=== PATIENT | female | born 1995 | race Caucasian/White ===

== ENCOUNTER 2021-10-18 13:47 | Emergency (ER) | payer OTHER, SELFPAY ==
[2021-10-18 14:07] VITALS: BP 123/56; PULSE 77; RESP 18; TEMP 36.4; O2SAT 98
--- NOTE | 2021-10-18 14:41 | ED.URI ---
HPI - URI/Sore Throat General Chief Complaint: Upper Respiratory Infection Stated Complaint: sorethroat,sinus pressure,congestion Time Seen by Provider: 10/18/21 14:41 Source: patient, RN notes reviewed and old records reviewed Mode of arrival: ambulatory Limitations: no limitations History of Present Illness HPI Narrative: 26 year old female who presents to [facility] care with complaints of sore throat, sinus congestion and sinus pressure with cough since Saturday. Patient reports that she has had some yellow tinged nasal drainage and has had clear productive cough with low grade fevers of 100F and sinus pressure. Patient states that she has history of asthma denies any acute shortness of breath or any noted wheezing. She reports that she has been taking DayQuil, NyQuil and also taking Mucinex for her symptoms. 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 MD elicited complaint: cough and sore throat Pertinent past history: asthma Related Data Home Medications Medication Instructions Recorded Confirmed aspirin 81 mg PO DAILY 10/18/21 10/18/21 diltiazem HCl 360 mg PO DAILY 10/18/21 10/18/21 itiagxshtali-ecw-uiln-FA-vit K 1 tablet PO DAILY 10/18/21 10/18/21 [Adults Multivitamin] sacubitril-valsartan [Entresto] 1 tablet PO BID 10/18/21 10/18/21 spironolactone 25 mg PO DAILY 10/18/21 10/18/21 Allergies Allergy/AdvReac Type Severity Reaction Status Date / Time iodine Allergy Unknown Verified 10/18/21 14:50 iohexol Allergy Unknown Verified 10/18/21 14:50 [From contrast - CT, X-RAY] latex Allergy Unknown Verified 10/18/21 14:50 Review of Systems Review of Systems: CONSTITUTIONAL: Low grade fever, chills, or sweats. EYES: Denies visual changes, redness, or discharge. ENT:Positive for rhinorrhea, congestion, sore throat, no otalgia. CARDIOVASCULAR: Denies chest pain, palpitations, or edema. RESPIRATORY: Positive for cough denies any dyspnea. GASTROINTESTINAL: Denies abdominal pain, nausea, vomiting, or diarrhea. GENITOURINARY: Denies dysuria or hematuria. SKIN: Denies rash or itching. MUSCULOSKELETAL: Denies back pain, joint pain, or myalgia. NEUROLOGIC: Denies headache, numbness, or weakness. PSYCHIATRIC: Denies anxiety or depression. All systems reviewed & are unremarkable except as noted in HPI and below PMFSH Past Medical History Medical History (Updated 10/19/21 @ 00:11 by Ida Stone NP) Asthma Surgical History Surgical History (Updated 10/19/21 @ 00:11 by Ida Stone NP) Heart valve replaced 2019 through cardiac catheterization procedure History of open heart surgery X3 Hx of cholecystectomy Social History Social History (Updated 10/19/21 @ 00:12 by Ida Stone NP) Smoking status: Never smoker Alcohol intake: current Alcohol use details: rare alcohol use Substance use: never Living arrangements: with family Gender identity (if verbalized by the patient): Female Comments At time of signature, agree with nursing past medical, surgical, social and family history. There is no relevant family history pertinent to the presenting complaint Exam Narrative: GENERAL: Well-appearing, well-nourished, and in no acute distress. HEAD: Normocephalic, atraumatic. EYES: PERRLA and EOMI. ENT: Nares red with yellowish tinged rhinorrhea no epistaxis. Mucous membranes moist.TM's normal with good light reflex, throat red without lesions or exudated some tonsil redness and swelling. NECK: Supple.no lymphadenopathy CHEST: Clear to auscultation. No respiratory distress.productive cough with no tachypnea or accessory muscle use SAO2 98% on room air HEART: Regular rate and rhythm. murmur heard. Normal peripheral pulses.no peripheral edema ABDOMEN: Soft, nontender, nondistended, normal
== END 2021-10-18 15:10 | disposition home or self-care (01) ==
PROVIDERS: Emergency Provider Registered Nurse
DX: J32.9 Chronic sinusitis, unspecified (principal); R05.9 Cough, unspecified; Z20.822 Contact with and (suspected) exposure to COVID-19; J45.909 Unspecified asthma, uncomplicated; Z95.2 Presence of prosthetic heart valve
CPT/HCPCS: 87081; 87426; 87804; 87880; 99213; C9803; G0463

== ENCOUNTER 2022-01-08 11:17 | Emergency (ER) | payer OTHER, SELFPAY ==
--- NOTE | 2022-01-08 11:22 | ED.URI ---
HPI - URI/Sore Throat General Chief Complaint: Upper Respiratory Infection Stated Complaint: cough,bilateral ear discomfort Time Seen by Provider: 01/08/22 11:21 Source: patient Mode of arrival: ambulatory Limitations: no limitations History of Present Illness HPI Narrative: Ms. Kim is a 26-year-old female patient presenting to the clinic today with complaints of sore throat, nasal congestion, cough, and bilateral ear pain x3 to 4 days She reports she has had chills, and hot sweats as well. She denies any known exposure to anybody with COVID, flu, or strep. She is a caregiver. Related Data Home Medications Medication Instructions Recorded Confirmed aspirin 81 mg tablet 81 mg PO DAILY 10/18/21 10/18/21 diltiazem HCl 360 mg 360 mg PO DAILY 10/18/21 10/18/21 capsule,extended release 24 hr multivit with minerals-iron 18 1 tablet PO DAILY 10/18/21 10/18/21 mg-folic ac 400 mcg-vit K 25 mcg tablet (Adults Multivitamin) sacubitril 24 mg-valsartan 26 mg 1 tablet PO BID 10/18/21 10/18/21 tablet (Entresto) spironolactone 25 mg tablet 25 mg PO DAILY 10/18/21 10/18/21 budesonide-formoterol HFA 160 2 inh inhalation DAILY 01/08/22 01/08/22 mcg-4.5 mcg/actuation aerosol inhaler (Symbicort) furosemide 20 mg tablet 1 tablet PO DAILY 01/08/22 01/08/22 Allergies Allergy/AdvReac Type Severity Reaction Status Date / Time iodine Allergy Unknown Verified 01/08/22 12:08 iohexol Allergy Unknown Verified 01/08/22 12:08 [From contrast - CT, X-RAY] latex Allergy Unknown Verified 01/08/22 12:08 Review of Systems Review of Systems: Pertinent positives per HPI. Patient denies any rash, headache, visual changes, dizziness, shortness of breath, chest pain, palpitations, nausea, vomiting, diarrhea, constipation, abdominal pain, or any urinary issues. PMFSH Past Medical History Medical History Asthma Surgical History Surgical History Heart valve replaced 2019 through cardiac catheterization procedure History of open heart surgery X3 Hx of cholecystectomy Social History Social History Smoking status: Never smoker Alcohol intake: current Alcohol use details: rare alcohol use Substance use: never Gender identity (if verbalized by the patient): Female Comments At the time of my signature, I reviewed and agree with the nursing past medical, surgical, social, and family history. There is no relevant family history pertinent to the patient complaint. Exam Narrative: General: Well-developed, well nourished, in no apparent distress Head: Normocephalic, atraumatic Eyes: Pupils equally round and reactive to light bilaterally, EOM intact, sclera and conjunctive clear, no discharge, lids normal Ears: TMs intact, dull, bulging, ear canals clear, no drainage, grossly hearing normal. Nose: Nares patent, clear nasal discharge, mild inflammation, no sinus tenderness. Mouth: Oropharynx without lesions or masses, good dentition, MMM. Oropharynx red without tonsillar exudate or enlargement, postnasal drip Neck: Supple, trachea midline, no enlargement of anterior or posterior cervical nodes, no thyroid masses or goiter palpable. Cardio: Regular rate and rhythm, s1 and s2 normal, systolic murmur graded 4 out of 6 appreciated best heard over the aortic valve. Resp: Clear to auscultation bilaterally anteriorly and posteriorly, no rhonchi, rales, wheezing or rubs Course Course Emergency Course: Portions of this record may have been created with voice recognition software. Level of Care: Express Care Visit Vital Signs Vital signs: Vital signs reviewed MDM - URI/Sore Throat MDM Narrative Medical decision making narrative: At the time of visit patient is resting comfortably on the exam table. COVID, flu, and strep testing com
[2022-01-08 11:30] VITALS: BP 136/70; PULSE 83; RESP 18; TEMP 36.8; O2SAT 100
== END 2022-01-08 12:12 | disposition home or self-care (01) ==
PROVIDERS: Emergency Provider Nurse Practitioner Family
DX: H69.93 Unspecified Eustachian tube disorder, bilateral (principal); J02.0 Streptococcal pharyngitis; R09.82 Postnasal drip; Z20.822 Contact with and (suspected) exposure to COVID-19; J45.909 Unspecified asthma, uncomplicated
CPT/HCPCS: 87081; 87147; 87426; 87804; 87880; 99213; C9803; G0463

== ENCOUNTER 2022-04-16 08:52 | Emergency (ER) | payer OTHER, SELFPAY ==
[2022-04-16 09:02] VITALS: BP 128/74; PULSE 76; RESP 16; TEMP 36.7; O2SAT 100
--- NOTE | 2022-04-16 09:37 | ED.URI ---
HPI - URI/Sore Throat General Chief Complaint: Upper Respiratory Infection Stated Complaint: Sore Throat, Bodyaches, Fever Time Seen by Provider: 04/16/22 09:38 Source: patient and RN notes reviewed Mode of arrival: ambulatory Limitations: no limitations History of Present Illness HPI Narrative: 26-year-old female presents to the [facility] with complaints of sore throat, body aches and fevers. Patient states symptoms started Saturday, 2 days ago. Has taken kaze-wly-schehjn products. Reports fevers of 100 201. MD elicited complaint: fever and sore throat Onset (ago): day(s) (2) Consistency: constant Treatments prior to arrival: acetaminophen and cold medicine Related Data Home Medications Medication Instructions Recorded Confirmed aspirin 81 mg tablet 81 mg PO DAILY 10/18/21 04/16/22 diltiazem HCl 360 mg 360 mg PO DAILY 10/18/21 04/16/22 capsule,extended release 24 hr multivit with minerals-iron 18 1 tablet PO DAILY 10/18/21 04/16/22 mg-folic ac 400 mcg-vit K 25 mcg tablet (Adults Multivitamin) sacubitril 24 mg-valsartan 26 mg 1 tablet PO BID 10/18/21 04/16/22 tablet (Entresto) spironolactone 25 mg tablet 25 mg PO DAILY 10/18/21 04/16/22 budesonide-formoterol HFA 160 2 inh inhalation DAILY 01/08/22 04/16/22 mcg-4.5 mcg/actuation aerosol inhaler (Symbicort) furosemide 20 mg tablet 1 tablet PO DAILY 01/08/22 04/16/22 Allergies Allergy/AdvReac Type Severity Reaction Status Date / Time iodine Allergy Unknown Verified 04/16/22 09:38 iohexol Allergy Unknown Verified 04/16/22 09:38 [From contrast - CT, X-RAY] latex Allergy Unknown Verified 04/16/22 09:38 Review of Systems Review of Systems: All systems reviewed & are unremarkable except as noted in HPI and below Constitutional: Constitutional: Reports as per HPI, Reports body ache(s), Reports chills, Reports fever(s) and Reports headache(s) Eyes: Eyes: Reports no additional eye complaints ENT: Reports as per HPI and Reports sore throat Cardiovascular: Cardiovascular: Reports no additional cardiovascular complaints Respiratory: Respiratory: Reports no additional respiratory complaints Gastrointestinal: Gastrointestinal: Reports no additional gastrointestinal complaints Musculoskeletal: Musculoskeletal: Reports no additional musculoskeletal complaints Integumentary/Breasts: Skin/Breast: Reports system reviewed and no additional complaints, except as docu Neurologic: Reports system reviewed and no additional complaints, except as documented Psychiatric: Psychiatric: Reports no additional psychiatric complaints Allergic/Immunologic: Allergic/Immunologic: Reports no additional allergic/immunologic complaints PMFSH Past Medical History Medical History Asthma Surgical History Surgical History Heart valve replaced 2019 through cardiac catheterization procedure History of open heart surgery X3 Hx of cholecystectomy Social History Social History Smoking status: Never smoker Alcohol intake: current Alcohol use details: rare alcohol use Substance use: never Gender identity (if verbalized by the patient): Female Comments At the time of my signature, I reviewed and agree with the nursing past medical, surgical, social, and family history. There is no relevant family history pertinent to the patient complaint. Exam Const: General: healthy appearing, no acute distress and alert Nutritional Appearance: well nourished and obese Orientation/consciousness: patient oriented x3 Limitations: no limitations HENMT: Head: normal to inspection Ears: external ears normal, TM's normal bilaterally and EAC's normal General nose exam: Normal external nose present Face and sinus: normal facial exam Throat: posterior oropharynx normal and uvula midline Eyes: General: appea
[2022-04-16 21:13] LABS: SARS-CoV-2 RNA PCR Negative
== END 2022-04-16 10:20 | disposition home or self-care (01) ==
PROVIDERS: Emergency Provider Nurse Practitioner
DX: J06.9 Acute upper respiratory infection, unspecified (principal); J45.909 Unspecified asthma, uncomplicated; Z20.822 Contact with and (suspected) exposure to COVID-19
CPT/HCPCS: 87081; 87426; 87804; 87880; 99213; C9803; G0463; U0003; U0005

== ENCOUNTER 2022-11-30 17:51 | Emergency (ER) | payer OTHER, SELFPAY ==
[2022-11-30 18:05] VITALS: BP 143/78; PULSE 76; RESP 18; TEMP 36.4; O2SAT 99
--- NOTE | 2022-11-30 18:25 | ED.URI ---
HPI - URI/Sore Throat General Chief Complaint: Upper Respiratory Infection Stated Complaint: Lt Ear Irritation,Cough,Congestion Time Seen by Provider: 11/30/22 18:19 Source: patient and RN notes reviewed Mode of arrival: ambulatory Limitations: no limitations History of Present Illness HPI Narrative: This patient presents today complaining of sore throat, postnasal drip, cough, left ear pain, headache x2 days. Currently rates her pain 7/10 and has been taking Mucinex and Tylenol without much relief. 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 History of congenital heart defect. Related Data Home Medications Medication Instructions Recorded Confirmed aspirin 81 mg tablet 81 mg PO DAILY 10/18/21 11/30/22 diltiazem HCl 360 mg 360 mg PO DAILY 10/18/21 11/30/22 capsule,extended release 24 hr multivit with minerals-iron 18 1 tablet PO DAILY 10/18/21 11/30/22 mg-folic ac 400 mcg-vit K 25 mcg tablet (Adults Multivitamin) sacubitril 24 mg-valsartan 26 mg 1 tablet PO BID 10/18/21 11/30/22 tablet (Entresto) spironolactone 25 mg tablet 25 mg PO DAILY 10/18/21 11/30/22 budesonide-formoterol HFA 160 2 inh inhalation DAILY 01/08/22 11/30/22 mcg-4.5 mcg/actuation aerosol inhaler (Symbicort) furosemide 20 mg tablet 1 tablet PO DAILY 01/08/22 11/30/22 hydralazine 50 mg tablet 50 mg PO TID 11/30/22 11/30/22 isosorbide dinitrate 20 mg tablet 20 mg PO TID 11/30/22 11/30/22 metoprolol succinate 50 mg 50 mg PO DAILY 11/30/22 11/30/22 tablet,extended release 24 hr Allergies Allergy/AdvReac Type Severity Reaction Status Date / Time iodine AdvReac Intermediate Wheezing Verified 11/30/22 18:10 iohexol AdvReac Intermediate Wheezing Verified 11/30/22 18:10 [From contrast - CT, X-RAY] latex AdvReac Mild Rash Verified 11/30/22 18:10 Review of Systems Review of Systems: CONSTITUTIONAL: Denies body aches, fever, chills, or sweats. EYES: Denies visual changes, redness, or discharge. ENT: Denies rhinorrhea. + sore throat, postnasal drip, left ear pain CARDIOVASCULAR: Denies chest pain, palpitations, or edema. RESPIRATORY: Denies dyspnea.+ cough GASTROINTESTINAL: Denies abdominal pain, nausea, vomiting, or diarrhea. GENITOURINARY: Denies dysuria or hematuria. SKIN: Denies rash, itching, or wounds. MUSCULOSKELETAL: Denies back pain, joint pain, or myalgia. NEUROLOGIC: Denies numbness, tingling, or weakness.+ headache PSYCH: Denies depression or anxiety. [facility] Past Medical History Medical History (Reviewed 11/30/22 @ 18:26 by Magdalena Houser, [facility] [place], ) Asthma Surgical History Surgical History (Reviewed 11/30/22 @ 18:26 by Magdalena Houser, [facility] [place], ) Heart valve replaced 2019 through cardiac catheterization procedure History of open heart surgery X3 Hx of cholecystectomy Social History Social History (Reviewed 11/30/22 @ 18:26 by Magdalena Houser, [facility] [place], ) Smoking status: Never smoker Alcohol intake: current Alcohol use details: rare alcohol use Substance use: never Living arrangements: with family Gender identity (if verbalized by the patient): Female Comments At time of signature, I have reviewed and agree with nursing past medical, surgical, social and family history unless otherwise noted. Please see nursing chart for further information. There is no relevant family history pertinent to the presenting complaint Exam Narrative: GENERAL: Well-appearing, well-nourished, and in no acute distress. HEAD: Normocephalic, atraumatic. EYES: EOMI. No redness or drainage. Conjunctivae normal. ENT: Mucous membranes pink and moist. Nares congested. No rhinorrhea. Right TM normal. Left TM with mild serous effusion without evidence of bacterial infection. Throat mildly erythematous posteriorly without edema or exudate. Uvula midline. NECK: Normal AROM. Supple. No lymphadenopathy. CHEST: No respiratory distress. Clear to auscultation. HEART: Regu
== END 2022-11-30 18:30 | disposition home or self-care (01) ==
PROVIDERS: Emergency Provider Nurse Practitioner
DX: J06.9 Acute upper respiratory infection, unspecified (principal); J45.909 Unspecified asthma, uncomplicated; Z79.82 Long term (current) use of aspirin; Z95.2 Presence of prosthetic heart valve
CPT/HCPCS: 87081; 87880; 99213; G0463

== ENCOUNTER 2023-03-17 10:07 | Emergency (ER) | payer OTHER, SELFPAY ==
[2023-03-17 10:19] VITALS: BP 125/73; PULSE 83; RESP 18; TEMP 36.6; O2SAT 98
--- NOTE | 2023-03-17 10:25 | ED.GENADULT ---
HPI - General Adult General Chief complaint: Unspecified Stated complaint: burning sensation on head Time Seen by Provider: 03/17/23 10:25 Source: patient Mode of arrival: ambulatory Limitations: no limitations History of Present Illness HPI narrative: 18-year-old female patient presents to the [facility] with complaints itchy scalp and burning to the scalp. Patient states her head started itching really bad on Saturday. Patient states yesterday it was itching again and felt like her scalp with burning. Denies any fevers, body aches or chills. Denies chest pain, shortness of breath. Denies any trouble swallowing or sore throat. Denies any ear pain. Patient states she has had shingles in her head before and felt similar but states that the pain at this time is all over and not specifically on 1 side. Related Data Home Medications Medication Instructions Recorded Confirmed aspirin 81 mg tablet 81 mg PO DAILY 10/18/21 11/30/22 diltiazem HCl 360 mg 360 mg PO DAILY 10/18/21 11/30/22 capsule,extended release 24 hr multivit with minerals-iron 18 1 tablet PO DAILY 10/18/21 11/30/22 mg-folic ac 400 mcg-vit K 25 mcg tablet (Adults Multivitamin) sacubitril 24 mg-valsartan 26 mg 1 tablet PO BID 10/18/21 11/30/22 tablet (Entresto) spironolactone 25 mg tablet 25 mg PO DAILY 10/18/21 11/30/22 budesonide-formoterol HFA 160 2 inh inhalation DAILY 01/08/22 11/30/22 mcg-4.5 mcg/actuation aerosol inhaler (Symbicort) furosemide 20 mg tablet 1 tablet PO DAILY 01/08/22 11/30/22 hydralazine 50 mg tablet 50 mg PO TID 11/30/22 11/30/22 isosorbide dinitrate 20 mg tablet 20 mg PO TID 11/30/22 11/30/22 metoprolol succinate 50 mg 50 mg PO DAILY 11/30/22 11/30/22 tablet,extended release 24 hr Allergies Allergy/AdvReac Type Severity Reaction Status Date / Time iodine AdvReac Intermediate Wheezing Verified 03/17/23 10:25 iohexol AdvReac Intermediate Wheezing Verified 03/17/23 10:25 [From contrast - CT, X-RAY] latex AdvReac Mild Rash Verified 03/17/23 10:25 meperidine [From Demerol] AdvReac Unknown Verified 03/17/23 10:25 Review of Systems Review of Systems: CONSTITUTIONAL: Denies fever, chills, or sweats. EYES: Denies visual changes, redness, or discharge. ENT: Denies rhinorrhea, congestion, sore throat, or otalgia. CARDIOVASCULAR: Denies chest pain, palpitations, or edema. RESPIRATORY: Denies cough or dyspnea. GASTROINTESTINAL: Denies abdominal pain, nausea, vomiting, or diarrhea. GENITOURINARY: Denies dysuria or hematuria. SKIN: Denies rash or Positive burning and itching. MUSCULOSKELETAL: Denies back pain, joint pain, or myalgia. NEUROLOGIC: Denies headache, numbness, or weakness. PSYCHIATRIC: Denies anxiety or depression. [facility] Past Medical History Medical History Asthma Surgical History Surgical History Heart valve replaced 2019 through cardiac catheterization procedure History of open heart surgery X3 Hx of cholecystectomy Social History Social History Smoking status: Never smoker Alcohol intake: current Alcohol use details: rare alcohol use Substance use: never Living arrangements: with family Gender identity (if verbalized by the patient): Female Comments At the time of my signature I agree with nursing past medical history, surgical, social, and family history. There is no relevant family history pertinent to the presenting complaint. Exam Narrative: GENERAL: Well-appearing, well-nourished, and in no acute distress. HEAD: Normocephalic, atraumatic. upon examination it does appear that patient has some dry flakiness noted to the top frontal portion of the scalp however when closer examination to the back of the hair does appear that she has a lice infestation. small flake like areas on the shaft of the hair and wh
== END 2023-03-17 10:45 | disposition home or self-care (01) ==
PROVIDERS: Emergency Provider Nurse Practitioner Family
DX: B85.2 Pediculosis, unspecified (principal); J45.909 Unspecified asthma, uncomplicated; Z79.82 Long term (current) use of aspirin
CPT/HCPCS: 99213; G0463

== ENCOUNTER 2023-06-28 15:13 | Emergency (ER) | payer OTHER, SELFPAY ==
[2023-06-28 15:38] VITALS: BP 135/62; PULSE 69; RESP 18; TEMP 36.7; O2SAT 96
--- NOTE | 2023-06-28 15:50 | ED.URI ---
HPI - URI/Sore Throat General Chief Complaint: Upper Respiratory Infection Stated Complaint: Cough,Congestion Time Seen by Provider: 06/28/23 15:49 Source: patient, RN notes reviewed and old records reviewed Mode of arrival: ambulatory Limitations: no limitations History of Present Illness HPI Narrative: 27-year-old female presents to the [facility] with complaints of cough, nasal congestion, postnasal drainage, sore throat that started last night less than 24 hours ago. Has taken a dose of Mucinex without relief. Denies fevers, chest pain, abdominal pain. Onset (ago): day(s) (1) Treatments prior to arrival: cold medicine (Mucinex) Related Data Home Medications Medication Instructions Recorded Confirmed aspirin 81 mg tablet 81 mg PO DAILY 10/18/21 06/28/23 diltiazem HCl 360 mg 360 mg PO DAILY 10/18/21 06/28/23 capsule,extended release 24 hr multivit with minerals-iron 18 1 tablet PO DAILY 10/18/21 06/28/23 mg-folic ac 400 mcg-vit K 25 mcg tablet (Adults Multivitamin) sacubitril 24 mg-valsartan 26 mg 1 tablet PO BID 10/18/21 06/28/23 tablet (Entresto) spironolactone 25 mg tablet 25 mg PO DAILY 10/18/21 06/28/23 budesonide-formoterol HFA 160 2 inh inhalation DAILY 01/08/22 06/28/23 mcg-4.5 mcg/actuation aerosol inhaler (Symbicort) furosemide 20 mg tablet 1 tablet PO DAILY 01/08/22 06/28/23 hydralazine 50 mg tablet 50 mg PO TID 11/30/22 06/28/23 isosorbide dinitrate 20 mg tablet 20 mg PO TID 11/30/22 06/28/23 metoprolol succinate 50 mg 50 mg PO DAILY 11/30/22 06/28/23 tablet,extended release 24 hr Allergies Allergy/AdvReac Type Severity Reaction Status Date / Time iodine AdvReac Intermediate Wheezing Verified 06/28/23 15:50 iohexol AdvReac Intermediate Wheezing Verified 06/28/23 15:50 [From contrast - CT, X-RAY] latex AdvReac Mild Rash Verified 06/28/23 15:50 meperidine [From Demerol] AdvReac Mild Rash Verified 06/28/23 15:50 Review of Systems Review of Systems: All systems reviewed & are unremarkable except as noted in HPI and below Constitutional: Constitutional: Reports no additional constitutional complaints Eyes: Eyes: Reports no additional eye complaints ENT: Reports as per HPI, Reports nasal congestion, Reports nasal discharge, Reports post nasal drip and Reports sore throat Cardiovascular: Cardiovascular: Reports no additional cardiovascular complaints, Denies chest pain and Denies dyspnea Respiratory: Respiratory: Reports as per HPI, Denies chest congestion, Reports cough and Denies dyspnea Gastrointestinal: Gastrointestinal: Reports no additional gastrointestinal complaints, Denies abdominal pain, Denies nausea and Denies vomiting Musculoskeletal: Musculoskeletal: Reports no additional musculoskeletal complaints Integumentary/Breasts: Skin/Breast: Reports system reviewed and no additional complaints, except as docu Neurologic: Reports system reviewed and no additional complaints, except as documented Psychiatric: Psychiatric: Reports no additional psychiatric complaints Allergic/Immunologic: Allergic/Immunologic: Reports no additional allergic/immunologic complaints [facility] Past Medical History Medical History Asthma Surgical History Surgical History Heart valve replaced 2019 through cardiac catheterization procedure History of open heart surgery X3 Hx of cholecystectomy Social History Social History Smoking status: Never smoker Alcohol intake: current Alcohol use details: rare alcohol use Substance use: never Living arrangements: with family Gender identity (if verbalized by the patient): Female Comments At the time of my signature, I reviewed and agree with the nursing past medical, surgical, social, and family history. There is no relevant family history pertinent to the patient complai
== END 2023-06-28 16:20 | disposition home or self-care (01) ==
PROVIDERS: Emergency Provider Nurse Practitioner
DX: J06.9 Acute upper respiratory infection, unspecified (principal); Z20.822 Contact with and (suspected) exposure to COVID-19; J45.909 Unspecified asthma, uncomplicated; Z95.2 Presence of prosthetic heart valve; Z79.82 Long term (current) use of aspirin
CPT/HCPCS: 87081; 87426; 87804; 87880; 99213; C9803; G0463

== ENCOUNTER 2023-07-28 11:44 | Emergency (ER) | payer OTHER, SELFPAY ==
[2023-07-28 13:12] VITALS: BP 144/82; PULSE 83; RESP 16; TEMP 36.7; O2SAT 99
--- NOTE | 2023-07-28 13:59 | ED.GENADULT ---
HPI - General Adult General Chief complaint: Upper Respiratory Infection Stated complaint: Sore Throat,Congestion Source: patient Mode of arrival: ambulatory Limitations: no limitations History of Present Illness HPI narrative: Patient presents for evaluation of sick symptoms. Symptom onset yesterday. Symptoms include sinus congestion, thick mucopurulent discharge from the nares, nausea, fatigue, mild generalized body aches, fatigue and fever. No vomiting, diarrhea, or SOB. Her [id number], with whom she spent time on [employer], recently tested positive for COVID. She does not smoke. Related Data Home Medications Medication Instructions Recorded Confirmed aspirin 81 mg tablet 81 mg PO DAILY 10/18/21 07/28/23 diltiazem HCl 360 mg 360 mg PO DAILY 10/18/21 07/28/23 capsule,extended release 24 hr multivit with minerals-iron 18 1 tablet PO DAILY 10/18/21 07/28/23 mg-folic ac 400 mcg-vit K 25 mcg tablet (Adults Multivitamin) sacubitril 24 mg-valsartan 26 mg 1 tablet PO BID 10/18/21 07/28/23 tablet (Entresto) spironolactone 25 mg tablet 25 mg PO DAILY 10/18/21 07/28/23 budesonide-formoterol HFA 160 2 inh inhalation DAILY 01/08/22 07/28/23 mcg-4.5 mcg/actuation aerosol inhaler (Symbicort) furosemide 20 mg tablet 1 tablet PO DAILY 01/08/22 07/28/23 hydralazine 50 mg tablet 50 mg PO TID 11/30/22 07/28/23 isosorbide dinitrate 20 mg tablet 20 mg PO TID 11/30/22 07/28/23 metoprolol succinate 50 mg 50 mg PO DAILY 11/30/22 07/28/23 tablet,extended release 24 hr Allergies Allergy/AdvReac Type Severity Reaction Status Date / Time iodine AdvReac Intermediate Wheezing Verified 07/28/23 13:44 iohexol AdvReac Intermediate Wheezing Verified 07/28/23 13:44 [From contrast - CT, X-RAY] latex AdvReac Mild Rash Verified 07/28/23 13:44 meperidine [From Demerol] AdvReac Mild Rash Verified 07/28/23 13:44 Review of Systems Review of Systems: CONSTITUTIONAL: reports fever and fatigue. Denies chills. EYES: Denies visual changes, redness, or discharge. ENT: Reports sinus congestion, thick mucopurulent discharge from the nares, and sore throat. CARDIOVASCULAR: Denies chest pain, palpitations, or edema. RESPIRATORY: Reports mild occasional cough. Denies shortness of breath. GASTROINTESTINAL: Reports nausea. Denies abdominal pain,vomiting, or diarrhea. GENITOURINARY: Denies dysuria or hematuria. SKIN: Denies rash or itching. MUSCULOSKELETAL: Reports generalized body aches NEUROLOGIC: Denies headache, numbness, dizziness, or weakness. PSYCHIATRIC: Denies anxiety or depression. PMFSH Past Medical History Medical History Asthma Congenital heart valve abnormality Surgical History Surgical History Heart valve replaced 2019 through cardiac catheterization procedure History of open heart surgery X3 Hx of cholecystectomy Family History Family History Mother Family history non-contributory Social History Social History Smoking status: Never smoker Alcohol intake: current Alcohol use details: rare alcohol use Substance use: never Living arrangements: with family Gender identity (if verbalized by the patient): Female Spiritual care concerns: No Exam Narrative: GENERAL: Well-appearing, well-nourished, and in no acute distress. HEAD: Normocephalic, atraumatic. EYES: PERRLA and EOMI. ENT: There is frontal and bilateral maxillary sinus tenderness. Mucous membranes moist. Oropharynx without tonsillar hypertrophy exudate or other lesions. Bilateral TMs pearly velásquez nonbulging NECK: Supple. No adenopathy or masses. No carotid bruits or JVD CHEST: Clear to auscultation. No respiratory distress. No wheezes rales or rhonchi HEART: Regular rate and
== END 2023-07-28 14:27 | disposition home or self-care (01) ==
PROVIDERS: Emergency Provider Nurse Practitioner
DX: J01.90 Acute sinusitis, unspecified (principal); Z20.822 Contact with and (suspected) exposure to COVID-19; J45.909 Unspecified asthma, uncomplicated; Z79.82 Long term (current) use of aspirin
CPT/HCPCS: 87081; 87426; 87804; 87880; 99213; C9803; G0463

== ENCOUNTER 2023-10-07 16:15 | Emergency (ER) | payer MEDICAID, SELFPAY ==
--- NOTE | ~2023-10-07 | XR_ITS ---
EXAMINATION: XR toe 5th LT min 2V DATE: 10/07/2023 16:54 INDICATION: Left fifth toe injury. TECHNIQUE: 4 views of left fifth toe were obtained. COMPARISON: None. FINDINGS: Bone alignment is normal. No fracture. Joint spaces are normal. IMPRESSION: 1. No fracture. Reviewed, dictated and finalized at location A. IMPRESSION: 1. No fracture.
[2023-10-07 16:39] VITALS: BP 144/74; PULSE 71; RESP 18; TEMP 37.1; O2SAT 96
--- NOTE | 2023-10-07 16:42 | ED.LOWEXIN ---
HPI - Extremity Injury (Lower) General Chief Complaint: Extremity Injury, Lower Stated Complaint: lt 5th toe injury Time Seen by Provider: 10/07/23 16:43 Source: patient Mode of arrival: ambulatory Limitations: no limitations History of Present Illness HPI Narrative: 28-year-old female presents with complaint of pain and swelling to left 5th toe for 4 days. Patient states that she tripped over phone cord and her bedroom fell and hit toe on bed frame. Concern for fracture. Has been elevating and icing without relief of pain. All systems reviewed and negative except as noted above. Related Data Home Medications Medication Instructions Recorded Confirmed aspirin 81 mg tablet 81 mg PO DAILY 10/18/21 10/07/23 diltiazem HCl 360 mg 360 mg PO DAILY 10/18/21 10/07/23 capsule,extended release 24 hr multivit with minerals-iron 18 1 tablet PO DAILY 10/18/21 10/07/23 mg-folic ac 400 mcg-vit K 25 mcg tablet (Adults Multivitamin) spironolactone 25 mg tablet 25 mg PO DAILY 10/18/21 10/07/23 budesonide-formoterol HFA 160 2 inh inhalation DAILY 01/08/22 10/07/23 mcg-4.5 mcg/actuation aerosol inhaler (Symbicort) furosemide 20 mg tablet 1 tablet PO DAILY 01/08/22 10/07/23 hydralazine 50 mg tablet 50 mg PO TID 11/30/22 10/07/23 isosorbide dinitrate 20 mg tablet 20 mg PO TID 11/30/22 10/07/23 metoprolol succinate 50 mg 50 mg PO DAILY 11/30/22 10/07/23 tablet,extended release 24 hr Allergies Allergy/AdvReac Type Severity Reaction Status Date / Time latex Allergy Mild Rash Verified 10/07/23 16:43 meperidine [From Demerol] Allergy Mild Rash Verified 10/07/23 16:43 iodine AdvReac Intermediate Wheezing Verified 10/07/23 16:43 iohexol AdvReac Intermediate Wheezing Verified 10/07/23 16:43 [From contrast - CT, X-RAY] Review of Systems Review of Systems: CONSTITUTIONAL: Denies fever, chills, or sweats. EYES: Denies visual changes, redness, or discharge. ENT: Denies rhinorrhea, congestion, sore throat, or otalgia. CARDIOVASCULAR: Denies chest pain, palpitations, or edema. RESPIRATORY: Denies cough or dyspnea. GASTROINTESTINAL: Denies abdominal pain, nausea, vomiting, or diarrhea. GENITOURINARY: Denies dysuria or hematuria. SKIN: Denies rash or itching. MUSCULOSKELETAL: Denies back pain, joint pain, or myalgia. Reports pain and swelling to left 5th toe. NEUROLOGIC: Denies headache, numbness, or weakness. PSYCHIATRIC: Denies anxiety or depression. All other systems reviewed are negative, except as documented in HPI. [facility] Past Medical History Medical History Asthma Congenital heart valve abnormality Surgical History Surgical History Heart valve replaced 2019 through cardiac catheterization procedure History of open heart surgery X3 Hx of cholecystectomy Family History Family History Mother Family history non-contributory Social History Social History Smoking status: Never smoker Alcohol intake: current Alcohol use details: rare alcohol use Substance use: never Living arrangements: with family Gender identity (if verbalized by the patient): Female Spiritual care concerns: No Comments At time of signature, agree with nursing past medical, surgical, social and family history. There is no relevant family history pertinent to the presenting complaint. Exam Narrative: GENERAL: This is a well-nourished, well-developed patient, in no apparent distress. HEAD: normocephalic, atraumatic. EYES: PERRL. Sclera clear/white. Vision is grossly intact. EARS: External ears normal NOSE: External nose normal NECK: Neck supple, non-tender without lymphadenopathy, masses or thyromegaly. CARDIOVASCULAR: Regular rate and rhythm without murmurs, gallops, or rub
== END 2023-10-07 17:07 | disposition home or self-care (01) ==
PROVIDERS: Emergency Provider Nurse Practitioner Family
DX: S90.122A Contusion of left lesser toe(s) without damage to nail, initial encounter (principal); W01.190A Fall on same level from slipping, tripping and stumbling with subsequent striking against furniture, initial encounter; J45.909 Unspecified asthma, uncomplicated; Q24.8 Other specified congenital malformations of heart; Z95.2 Presence of prosthetic heart valve; Z79.82 Long term (current) use of aspirin
CPT/HCPCS: 73660; 99213; G0463

== ENCOUNTER 2023-10-13 08:50 | Emergency (ER) | payer MEDICAID, SELFPAY ==
--- NOTE | 2023-10-13 08:56 | ED.GENADULT ---
HPI - General Adult General Chief complaint: Upper Respiratory Infection Stated complaint: Sore Throat,Headache Time Seen by Provider: 10/13/23 08:56 Source: patient Mode of arrival: ambulatory Limitations: no limitations History of Present Illness HPI narrative: 28-year-old female presents to clinic today with complaints of fever that started at 5:00 a.m. this morning for which she took Tylenol and the fever broke. Patient states that she started having symptoms of sore throat, sinus pressure, congestion on . She also has a nonproductive cough and headaches. 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 patient denies nausea, vomiting, diarrhea. patient states she did get the flu vaccine this year and a week later was positive for the flu. Patient states her and her are trying to children but she denies at this time stating she recently just got off of her period. Related Data Home Medications Medication Instructions Recorded Confirmed aspirin 81 mg tablet 81 mg PO DAILY 10/18/21 10/13/23 diltiazem HCl 360 mg 360 mg PO DAILY 10/18/21 10/13/23 capsule,extended release 24 hr multivit with minerals-iron 18 1 tablet PO DAILY 10/18/21 10/13/23 mg-folic ac 400 mcg-vit K 25 mcg tablet (Adults Multivitamin) spironolactone 25 mg tablet 25 mg PO DAILY 10/18/21 10/13/23 budesonide-formoterol HFA 160 2 inh inhalation DAILY 01/08/22 10/13/23 mcg-4.5 mcg/actuation aerosol inhaler (Symbicort) furosemide 20 mg tablet 1 tablet PO DAILY 01/08/22 10/13/23 hydralazine 50 mg tablet 50 mg PO TID 11/30/22 10/13/23 isosorbide dinitrate 20 mg tablet 20 mg PO TID 11/30/22 10/13/23 metoprolol succinate 50 mg 50 mg PO DAILY 11/30/22 10/13/23 tablet,extended release 24 hr Allergies Allergy/AdvReac Type Severity Reaction Status Date / Time latex Allergy Mild Rash Verified 10/13/23 09:04 meperidine [From Demerol] Allergy Mild Rash Verified 10/13/23 09:04 iodine AdvReac Intermediate Wheezing Verified 10/13/23 09:04 iohexol AdvReac Intermediate Wheezing Verified 10/13/23 09:04 [From contrast - CT, X-RAY] Review of Systems Review of Systems: CONSTITUTIONAL: positive fever, chills, body aches, and sweats. EYES: Denies visual changes, redness, or discharge. ENT: positive rhinorrhea, congestion, sore throat, and denies otalgia. CARDIOVASCULAR: Denies chest pain, palpitations, or edema. RESPIRATORY: positive nonproductive cough. denies dyspnea. GASTROINTESTINAL: Denies abdominal pain, nausea, vomiting, or diarrhea. GENITOURINARY: Denies dysuria or hematuria. SKIN: Denies rash or itching. MUSCULOSKELETAL: Denies back pain, joint pain, or myalgia. NEUROLOGIC: positive headache, and denies numbness and weakness. PSYCHIATRIC: Denies anxiety or depression. [facility] Past Medical History Medical History Asthma Congenital heart valve abnormality Surgical History Surgical History Heart valve replaced 2019 through cardiac catheterization procedure History of open heart surgery X3 Hx of cholecystectomy Family History Family History Mother Family history non-contributory Social History Social History Smoking status: Never smoker Alcohol intake: current Alcohol use details: rare alcohol use Substance use: never Living arrangements: with family Gender identity (if verbalized by the patient): Female Spiritual care concerns: No Comments At the time of my signature I agree with nursing past medical history, surgical, social, and family history. There is no relevant family history pertinent to the presenting complaint. Exam Narrative: GENERAL: ill-appearing, well-nourished, and in no acute distress. HEAD: Normocepha
[2023-10-13 09:03] VITALS: BP 113/69; PULSE 54; RESP 18; TEMP 36.4; O2SAT 97
== END 2023-10-13 09:40 | disposition home or self-care (01) ==
PROVIDERS: Emergency Provider Nurse Practitioner Family
DX: B34.9 Viral infection, unspecified (principal); J02.9 Acute pharyngitis, unspecified; Z20.822 Contact with and (suspected) exposure to COVID-19; J45.909 Unspecified asthma, uncomplicated; Z95.2 Presence of prosthetic heart valve
CPT/HCPCS: 87081; 87426; 87804; 87880; 99213; G0463

== ENCOUNTER 2023-10-24 14:52 | Emergency (ER) | payer MEDICAID, SELFPAY ==
--- NOTE | 2023-10-24 14:57 | ED.URI ---
HPI - URI/Sore Throat General Chief Complaint: Upper Respiratory Infection Stated Complaint: Congestion,Cough,Fever Time Seen by Provider: 10/24/23 14:57 Source: patient Mode of arrival: ambulatory Limitations: no limitations History of Present Illness HPI Narrative: Patient is a 28-year-old female that presents with cough, congestion and fever that started Saturday. Patient has had similar symptoms the last 2 weeks but went to [place] on Saturday and symptoms worsened. Has been taking gwbe-ciq-enpasel medications with no relief. Was seen here at the start of symptoms and was told she had a virus. Related Data Home Medications Medication Instructions Recorded Confirmed aspirin 81 mg tablet 81 mg PO DAILY 10/18/21 10/24/23 diltiazem HCl 360 mg 360 mg PO DAILY 10/18/21 10/24/23 capsule,extended release 24 hr multivit with minerals-iron 18 1 tablet PO DAILY 10/18/21 10/24/23 mg-folic ac 400 mcg-vit K 25 mcg tablet (Adults Multivitamin) spironolactone 25 mg tablet 25 mg PO DAILY 10/18/21 10/24/23 budesonide-formoterol HFA 160 2 inh inhalation DAILY 01/08/22 10/24/23 mcg-4.5 mcg/actuation aerosol inhaler (Symbicort) furosemide 20 mg tablet 1 tablet PO DAILY 01/08/22 10/24/23 hydralazine 50 mg tablet 50 mg PO TID 11/30/22 10/24/23 isosorbide dinitrate 20 mg tablet 20 mg PO TID 11/30/22 10/24/23 metoprolol succinate 50 mg 50 mg PO DAILY 11/30/22 10/24/23 tablet,extended release 24 hr Allergies Allergy/AdvReac Type Severity Reaction Status Date / Time latex Allergy Mild Rash Verified 10/24/23 15:05 meperidine [From Demerol] Allergy Mild Rash Verified 10/24/23 15:05 iodine AdvReac Intermediate Wheezing Verified 10/24/23 15:05 iohexol AdvReac Intermediate Wheezing Verified 10/24/23 15:05 [From contrast - CT, X-RAY] Review of Systems Review of Systems: All systems reviewed & are unremarkable except as noted in HPI and below Constitutional: Constitutional: Denies body ache(s), Denies chills, Denies fatigue, Reports fever(s), Denies headache(s), Denies malaise and Denies weakness Eyes: Eyes: Denies blurry vision, Denies itchy eyes and Denies loss of vision ENT: Denies otalgia, Denies headache(s), Reports nasal congestion, Denies sinus pain and Denies sore throat Cardiovascular: Cardiovascular: Denies chest pain, Denies irregular heart rhythm and Denies dyspnea Respiratory: Respiratory: Reports cough and Denies dyspnea Gastrointestinal: Gastrointestinal: Denies abdominal pain, Denies diarrhea, Denies nausea and Denies vomiting Musculoskeletal: Musculoskeletal: Denies back pain, Denies myalgias and Denies arthralgias Integumentary/Breasts: Skin/Breast: Denies pruritus and Denies rash Neurologic: Denies headache(s), Denies loss of vision and Denies weakness Psychiatric: Psychiatric: Reports no additional psychiatric complaints Endocrine: Endocrine: Denies fatigue Allergic/Immunologic: Allergic/Immunologic: Denies itchy eyes PMFSH Past Medical History Medical History Asthma Congenital heart valve abnormality Surgical History Surgical History Heart valve replaced 2019 through cardiac catheterization procedure History of open heart surgery X3 Hx of cholecystectomy Family History Family History Mother Family history non-contributory Social History Social History Smoking status: Never smoker Alcohol intake: current Alcohol use details: rare alcohol use Substance use: never Living arrangements: with family Gender identity (if verbalized by the patient): Female Spiritual care concerns: No Comments At time of signature, agree with nursing past medical, surgical, social and family history. There is no relevant family history pertinent to the presenting compla
[2023-10-24 14:59] VITALS: BP 136/79; PULSE 78; RESP 18; TEMP 36.6; O2SAT 98
== END 2023-10-24 15:35 | disposition home or self-care (01) ==
PROVIDERS: Emergency Provider Nurse Practitioner Family
DX: J06.9 Acute upper respiratory infection, unspecified (principal); Z20.822 Contact with and (suspected) exposure to COVID-19; J45.909 Unspecified asthma, uncomplicated; Z95.2 Presence of prosthetic heart valve
CPT/HCPCS: 87426; 87804; 99213; G0463

== ENCOUNTER 2023-10-29 15:30 | Emergency (ER) | payer OTHER, MEDICAID, SELFPAY ==
[2023-10-29 15:37] VITALS: BP 131/71; PULSE 57; RESP 18; TEMP 36.1; O2SAT 98
--- NOTE | 2023-10-29 15:39 | ED.EAR ---
HPI - Ear Problem General Chief complaint: Ear Stated complaint: Left Earache Source: patient Mode of arrival: ambulatory Limitations: no limitations History of Present Illness HPI Narrative: 28 y/o female presented for c/o left ear pain today. Reports decreased hearing. Last night she cleaned some ear wax out of the ear using Qtip. Currently on Augmentin for URI. Denies tinnitus, dizziness, n/v/d/f/c. Complaint: ear pain Related Data Home Medications Medication Instructions Recorded Confirmed aspirin 81 mg tablet 81 mg PO DAILY 10/18/21 10/24/23 diltiazem HCl 360 mg 360 mg PO DAILY 10/18/21 10/24/23 capsule,extended release 24 hr multivit with minerals-iron 18 1 tablet PO DAILY 10/18/21 10/24/23 mg-folic ac 400 mcg-vit K 25 mcg tablet (Adults Multivitamin) spironolactone 25 mg tablet 25 mg PO DAILY 10/18/21 10/24/23 budesonide-formoterol HFA 160 2 inh inhalation DAILY 01/08/22 10/24/23 mcg-4.5 mcg/actuation aerosol inhaler (Symbicort) furosemide 20 mg tablet 1 tablet PO DAILY 01/08/22 10/24/23 hydralazine 50 mg tablet 50 mg PO TID 11/30/22 10/24/23 isosorbide dinitrate 20 mg tablet 20 mg PO TID 11/30/22 10/24/23 metoprolol succinate 50 mg 50 mg PO DAILY 11/30/22 10/24/23 tablet,extended release 24 hr Allergies Allergy/AdvReac Type Severity Reaction Status Date / Time latex Allergy Mild Rash Verified 10/24/23 15:05 meperidine [From Demerol] Allergy Mild Rash Verified 10/24/23 15:05 iodine AdvReac Intermediate Wheezing Verified 10/24/23 15:05 iohexol AdvReac Intermediate Wheezing Verified 10/24/23 15:05 [From contrast - CT, X-RAY] Review of Systems Review of Systems: CONSTITUTIONAL: Denies malaise, chills, or fever. EYES: Denies visual changes, redness, or discharge. ENT: Denies rhinorrhea, congestion, sinus pain, and sore throat. Reports ear pain RESPIRATORY: Denies cough or dyspnea. SKIN: Denies rash or itching. MUSCULOSKELETAL: Denies myalgia. NEUROLOGIC: Denies headache. All systems reviewed & are unremarkable except as noted in HPI and below PMFSH Past Medical History Medical History Asthma Congenital heart valve abnormality Surgical History Surgical History Heart valve replaced 2019 through cardiac catheterization procedure History of open heart surgery X3 Hx of cholecystectomy Family History Family History Mother Family history non-contributory Social History Social History Smoking status: Never smoker Alcohol intake: current Alcohol use details: rare alcohol use Substance use: never Living arrangements: with family Gender identity (if verbalized by the patient): Female Spiritual care concerns: No Comments At time of signature, agree with nursing past medical, surgical, social and family history. There is no relevant family history pertinent to the presenting complaint Exam Narrative: GENERAL: Well-appearing EYES: PERRLA, conjunctivae clear ENT: Nares clear. Mucous membranes moist. Right TM pearly velásquez with dull light reflex; Left TM unable to visualize due to excess cerumen, visualized portion of canal appears erythematous, left tragal tenderness noted. Oropharynx not erythematous without lesions. CHEST: Clear to auscultation, breath sounds equal. HEART: Regular rate and rhythm. Murmur is noted on exam. SKIN: Warm, dry, no rash. NEURO: Alert and oriented x3. Course Course Emergency Course: Patient is aware of diagnosis, understands and agrees to treatment plan. Anticipatory guidance given. Patient agrees to follow-up as directed and is aware of reasons to seek care at the emergency department. Portions of this record may have been created with voice recognition software Level of Care: Express Care Visit Vital Sign
== END 2023-10-29 16:01 | disposition home or self-care (01) ==
PROVIDERS: Emergency Provider Nurse Practitioner Family
DX: H61.22 Impacted cerumen, left ear (principal); J45.909 Unspecified asthma, uncomplicated; Z95.2 Presence of prosthetic heart valve; Z79.82 Long term (current) use of aspirin
CPT/HCPCS: 69210; 99213; G0463

== ENCOUNTER 2025-06-17 07:08 | Outpatient (CLI) | payer OTHER, SELFPAY ==
--- NOTE | ~2025-06-17 | MR_ITS ---
EXAM/PROCEDURE: MR lumbar spine wo con HISTORY: Radiculopathy COMPARISON: None TECHNIQUE: Standard technique for multiplanar lumbar spine MRI performed. FINDINGS: Minimal disc bulging and the posterior spondylosis present at several levels along with degenerative changes developing in the posterior elements with no discrete disc protrusion or spinal canal stenosis. The neural foramen appear patent throughout. The conus tapers normally at L1. Visualized portion of the spinal cord appear normal. Level specific findings as follows: T12-L1: Mild degenerative change L1-2: Mild degenerative change L2-3: Mild degenerative change L3-4: Mild degenerative change L4-5: Mild to moderate thickening of ligamentum flavum with mild facet hyperostosis but no spinal canal stenosis or discrete disc protrusion. The lateral recesses are beginning to narrowed but are not stenosis. Neural foramen are mildly narrowed right worse than left. L5-S1: Slightly more advanced posterior disc bulging along with thickening of ligamentum flavum contributing to flattening of the thecal sac and mild bilateral neural foraminal narrowing right worse than left. No spinal canal stenosis or discrete disc protrusion. IMPRESSION: 1. Multilevel degenerative changes are mild. No spinal canal stenosis or discrete disc protrusion. 2. No gross acute or aggressive bony or soft tissue process. Reviewed, dictated and finalized at location A. [facility]IC[facility] SPECIALIST IMPRESSION: 1. Multilevel degenerative changes are mild. No spinal canal stenosis or discre te disc protrusion. 2. No gross acute or aggressive bony or soft tissue process.
== END 2025-06-17 07:09 | disposition home or self-care (01) ==
PROVIDERS: Visit Provider Orthopaedic Surgery Orthopaedic Surgery of the Spine
DX: M47.896 Other spondylosis, lumbar region (principal)
CPT/HCPCS: 72148

== ENCOUNTER 2025-07-06 08:11 | Outpatient (CLI) | payer OTHER, SELFPAY ==
--- NOTE | ~2025-07-06 | CT_ITS ---
EXAMINATION: CT lumbar spine wo con COMPARISON: None HISTORY: Chronic Bi Low back pain TECHNIQUE: Axial images were obtained through the spine without IV contrast. Coronal, sagittal reconstruction images were obtained from the axial views. CT scan performed using dose optimization techniques including the following automated exposure control; adjustment of mA and/or kV; use of iterative reconstruction technique. Automatic exposure control was used to reduce radiation dose. Permanent radiation dose record is archived to PACS. FINDINGS: There is a mild levoconvex scoliosis.No fracture or subluxation. Minimal loss of disc height at L4-5 and L5-S1 with circumferential bulging of the disc producing mild bilateral foramina and canal stenosis. Soft tissues unremarkable. Impression: No acute abnormality. Reviewed, dictated and finalized at location P. ORK CABLE INSTALLER Impression: No acute abnormality.
== END 2025-07-06 08:12 | disposition home or self-care (01) ==
PROVIDERS: Visit Provider Orthopaedic Surgery Orthopaedic Surgery of the Spine
DX: M41.86 Other forms of scoliosis, lumbar region (principal); Q76.49 Other congenital malformations of spine, not associated with scoliosis; M54.50 Low back pain, unspecified; G89.29 Other chronic pain
CPT/HCPCS: 72131

== ENCOUNTER 2025-07-20 09:31 | Emergency (ER) | payer OTHER, SELFPAY ==
[2025-07-20 09:42] VITALS: BP 169/76; PULSE 76; RESP 18; TEMP 36.7; O2SAT 99
--- OUTSIDE RECORDS SUMMARY | 2025-07-20 09:53 | XMS_ITS | Encounter Summary ---
Author Organization [facility] Address [address] [place] [id number] Care Team Providers Care Philanthropy Officer Name Role Phone Ally Ruvalcaba NP Primary Care Provider + Elisabeth Perez MD Unavailable [phone] Jean Carlos Hankins MD Unavailable [phone] Laureano Molina MD Unavailable [phone] Encounter Details Date Type Department Care Team (Late st Contact Info) Description 06/18/2024 [facility] [address] [place] [address] Ally Ruvalcaba NP [address] [address] Appointment scheduled Social History Tobacco Use Types Packs/Day Years Used Date Smoking Tobacco: Never Passive Smoke Exposure: Never Smokeless Tobacco: Never Alcohol Use Standard Drinks/Week Comments Yes 0 (1 standard drink = 0.6 oz pur e alcohol) Social PHQ-2 Answer Date Recorded Patient Health Questionnaire-2 Score 0 01/14/2024 Comments No Sex and Gender Information Value Date Recorded Sex Assigned at Not on file Legal Sex Female 8:35 PM CDT Gender Identity Not on file Sexual Orientation Not on file documented as of this encounter Plan of Treatment Not on file documented as of this encounter Visit Diagnoses Not on filedocumented in this encounter Additional Health Concerns Infection Onset Date Last Indicated Resolved Time COVID-19 Rule Out 07/14/2024 07/14/2024 07/14/2024 9:28 AM CHIEF EXECUTIVE Assessment Noted Time PHQ-9 Depression Total Score: 0 06/29/20 3:18 PM CHIEF EXECUTIVE documented as of this encounter Care Teams Philanthropy Officer Relationship Specialty Start Date End Date Ally Ruvalcaba, AUTOMATIC BRINE MIXER OPERATOR [address] [address] PCP - General Nurse Practitioner Family 08/30/20 Elisabeth Perez MD [address] [place] [address] CARDIOLOGY 08/30/20 Jean Carlos Hankins MD [address], [place] [address] INTERNAL MEDICINE 08/30/20 Laureano Molina MD [address] [address] CARDIOVASCULAR DISEASE 11/27/23 documented as of this encounter
--- OUTSIDE RECORDS SUMMARY | 2025-07-20 09:53 | XMS_ITS | Encounter Summary ---
Author Organization [facility] Address [address] [facility] [place] [address] Care Team Providers Care Chartered Wealth Manager Name Role Phone Ally Ruvalcaba STRATEGIC MANAGER-MANAGER SOCIAL WORK Primary Care Prov ider Encounter Details Date Type Department Care Team (Late st Contact Info) Description 11/07/2023 Telephone [facility] - Pulmonology [facility] [facility], [place] [id number] Jean Carlos Hankins MD [address] [place] [address] DIV OF PULMONARY/[place] [address] Social History Tobacco Use Types Packs/Day Years Used Date Smoking Tobacco: Never Smokeless Tobacco: Never Alcohol Use Standard Drinks/Week Comments Yes 0 (1 standard drink = 0.6 oz pur e alcohol) social mainly weekends Comments No Sex and Gender Information Value Date Recorded Sex Assigned at Female 11/22/2020 8:33 AM CDT Legal Sex Female 5:35 AM MANAGER NURSING HOME Gender Identity Female 11/22/2020 8:33 AM CDT Sexual Orientation Not on file documented as of this encounter Functional Status * Is person deaf or have serious hearing difficulty? Answer Date of Assessment Author No 01/16/2020 11:32 AM Beulah Nguyen RN * Is person blind or have serious difficulty seeing? Answer Date of Assessment Author No 01/16/2020 11:32 AM Beulah Nguyen RN * Does person have serious difficulty walking/climbing stairs? Answer Date of Assessment Author No 01/16/2020 11:32 AM Beulah Nguyen RN * Does person have difficulty dressing/bathing? Answer Date of Assessment Author Yes 01/16/2020 11:32 AM Beulah Nguyen RN * Does person have difficulty doing errands alone? Answer Date of Assessment Author No 01/16/2020 11:32 AM Beulah Nguyen RN documented as of this encounter Mental Status * Does person have difficulty concentrating/remembering/making decisions? Answer Entry Date Author No 01/16/2020 11:32 AM Beulah Nguyen RN documented in this encounter Miscellaneous Notes * Telephone Encounter - Love Polanco - 11/07/2023 11:01 AM CDT Patient called stating Insurance denied her refill on Symbicort 160-4.5 MCG/ACT inhaler. Patient called Insurance company and was told to give office RIN # [id number] Patient call back number is [phone] documented in this encounter Plan of Treatment Not on file documented as of this encounter Goals Goal Patient Goal Type Associated Problems Recent Progress Patient-Stated? Author Mobility/ROM General Improving(08/29 11:51 AM MANAGER NURSING HOME) No Ayden Valentine RN Note: Expected end date: ongoing The goal is to maintain or improve your mobility at the optimum level for you. Interventions: documented as of this encounter Visit Diagnoses Not on filedocumented in this encounter Care Teams Chartered Wealth Manager Relationship Specialty Start Date End Date Ally Ruvalcaba, STRATEGIC MANAGER-MANAGER SOCIAL WORK PCP - General 11/22/20 documented as of this encounter
--- OUTSIDE RECORDS SUMMARY | 2025-07-20 09:53 | XMS_ITS | Encounter Summary ---
Author Organization [facility] Address [address] [place] [address] Care Team Providers Care Shield Installer Name Role Phone Ally Ruvalcaba NP Primary Care Provider + Elisabeth Perez MD Unavailable [phone] Jean Carlos Hankins MD Unavailable [phone] Laureano Molina MD Unavailable [phone] Encounter Details Date Type Department Care Team (Late st Contact Info) Description 05/18/2024 [facility] [address] [place] [address] Ally Ruvalcaba NP [address] [facility] [address] [place] [address] UTI Symptoms? Social History Tobacco Use Types Packs/Day Years Used Date Smoking Tobacco: Never Passive Smoke Exposure: Never Smokeless Tobacco: Never Alcohol Use Standard Drinks/Week Comments Yes 0 (1 standard drink = 0.6 oz pur e alcohol) social - occasional weekends PHQ-2 Answer Date Recorded Patient Health Questionnaire-2 [...] Rule Out 07/14/2024 07/14/2024 07/14/2024 9:28 AM PRODUCTION CONTROL CLERK Assessment Noted Time PHQ-9 Depression Total Score: 0 06/29/20 3:18 PM PRODUCTION CONTROL CLERK documented as of this encounter Care Teams Shield Installer Relationship Specialty Start Date End Date Ally Ruvalcaba, GIFTED PROGRAM TEACHER [address] [address] PCP - General Nurse Practitioner Family 08/30/20 Elisabeth Perez MD [address] [address] CARDIOLOGY 08/30/20 Jean Carlos Hankins MD [address] [place] [address] INTERNAL MEDICINE 08/30/20 Laureano Molina MD [address] [address] CARDIOVASCULAR DISEASE 11/27/23 documented as of this encounter
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
--- OUTSIDE RECORDS SUMMARY | 2025-07-20 09:53 | XMS_ITS | Encounter Summary ---
Author Organization [facility] Address [address] [place] [address] Care Team Providers Care Retrieval Specialist Name Role Phone Ally Ruvalcaba NP Primary Care Provider + Elisabeth Perez MD Unavailable Jean Carlos Hankins MD Unavailable [phone] Laureano Molina MD Unavailable [phone] Encounter Details Date Type Department Care Team (Late st Contact Info) Description 10/16/2024 [email or web address] [address] [place] [address] Ally Ruvalcaba NP [address] [address] Physical Social History Tobacco Use Types Packs/Day Years [...] filedocumented in this encounter Additional Health Concerns Assessment Noted Time PHQ-9 Depression Total Score: 0 06/29/20 21 3:18 PM NURSES DIRECTOR documented as of this encounter Care Teams Retrieval Specialist Relationship Specialty Start Date End Date Ally Ruvalcaba, EXPORT COORDINATOR [address] [address] PCP - General Nurse Practitioner Family 08/30/20 Elisabeth Perez MD [address] [address] CARDIOLOGY 08/30/20 Jean Carlos Hankins MD [address] [address] INTERNAL MEDICINE 08/30/20 Laureano Molina MD [address] [id number] CARDIOVASCULAR DISEASE 11/27/23 documented as of this encounter
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
--- OUTSIDE RECORDS SUMMARY | 2025-07-20 09:53 | XMS_ITS | Encounter Summary ---
Author Organization [facility] Address [address] [place] [address] Care Team Providers Care Home Health Clinician Name Role Phone Ally Ruvalcaba NP Primary Care Provider + Elisabeth Perez MD Unavailable [phone] Jean Carlos Hankins MD Unavailable Laureano Molina MD Unavailable [phone] Encounter Details Date Type Department Care Team (Late st Contact Info) Description 06/23/2024 [facility] [address] [place] [address] Ally Ruvalcaba NP [address] [facility] [address] [place] [address] Wound test Social History Tobacco Use Types Packs/Day Years [...] Rule Out 07/14/2024 07/14/2024 07/14/2024 9:28 AM RIBBING MACHINE OPERATOR Assessment Noted Time PHQ-9 Depression Total Score: 0 06/29/20 3:18 PM RIBBING MACHINE OPERATOR documented as of this encounter Care Teams Home Health Clinician Relationship Specialty Start Date End Date Ally Ruvalcaba, GROCERY BUYER [address] [address] PCP - General Nurse Practitioner Family 08/30/20 Elisabeth Perez MD [address] [place] [address] CARDIOLOGY 08/30/20 Jean Carlos Hankins MD [address], [place] [address] INTERNAL MEDICINE 08/30/20 Laureano Molina MD [address] [address] CARDIOVASCULAR DISEASE 11/27/23 documented as of this encounter
--- OUTSIDE RECORDS SUMMARY | 2025-07-20 09:53 | XMS_ITS | Encounter Summary ---
Author Organization [facility] Address [address] [place] [address] Care Team Providers Care Church Secretary Name Role Phone Ally Ruvalcaba NP Primary Care Provider + Elisabeth Perez MD Unavailable [phone] Jean Carlos Hankins MD Unavailable [phone] Laureano Molina MD Unavailable [phone] Encounter Details Date Type Department Care Team (Late st Contact Info) Description 11/06/2024 [facility] [address] [place] [address] Ally Ruvalcaba NP 9401 [facility] [address] [place] [address] soap Social History Tobacco Use Types Packs/Day Years [...] Total Score: 0 06/29/20 21 3:18 PM DRAFTER CARTOGRAPHIC documented as of this encounter Care Teams Church Secretary Relationship Specialty Start Date End Date Ally Ruvalcaba, MANAGER TESTING [address] [address] PCP - General Nurse Practitioner Family 08/30/20 Elisabeth Perez MD [address] [address] CARDIOLOGY 08/30/20 Jean Carlos Hankins MD [address] [address] INTERNAL MEDICINE 08/30/20 Laureano Molina MD [address] [phone] CARDIOVASCULAR DISEASE 11/27/23 documented as of this encounter
--- OUTSIDE RECORDS SUMMARY | 2025-07-20 09:53 | XMS_ITS | Encounter Summary ---
Author Organization [facility] Address [address] [place] [address] Care Team Providers Care Java Xml Developer Name Role Phone Ally Ruvalcaba NP Primary Care Provider + Elisabeth Perez MD Unavailable Jean Carlos Hankins MD Unavailable [phone] Laureano Molina MD Unavailable Encounter Details Date Type Department Care Team (Late st Contact Info) Description 02/17/2025 [facility] [address] [place] [address] Ally Ruvalcaba NP [address] [address] Couple questions Social History Tobacco Use Types Packs/Day Years [...] Total Score: 0 06/29/20 21 3:18 PM FABRICATION LEAD documented as of this encounter Care Teams Java Xml Developer Relationship Specialty Start Date End Date Ally Ruvalcbaa, BOOKKEEPERS SUPERVISOR [address] [address] PCP - General Nurse Practitioner Family 08/30/20 Elisabeth Perez MD [address] [address] CARDIOLOGY 08/30/20 Jean Carlos Hankins MD [address] [address] INTERNAL MEDICINE 08/30/20 Laureano Molina MD [address] [phone] CARDIOVASCULAR DISEASE 11/27/23 documented as of this encounter
--- OUTSIDE RECORDS SUMMARY | 2025-07-20 09:53 | XMS_ITS | Encounter Summary ---
Author Organization [facility] Address [address] [facility] [place] [address] Care Team Providers Care Shore Man Name Role Phone Ally Ruvalcaba METAL DOOR ASSEMBLER-SURGICAL GARMENT ASSEMBLY SUPERVISOR Primary Care Prov ider Reason for Visit * Reason Onset Date Comments Appointment 11/01/2023 Encounter Details Date Type Department Care Team (Late st Contact Info) Description 11/01/2023 Telephone [facility] - Pulmonology [address] [facility], [place] [phone] Carlyn Gomes MD [address] [facility] PULMONARY DISEASE/[place] [phone] Appointment Social History Tobacco Use Types Packs/Day Years Used Date Smoking Tobacco: Never Smokeless Tobacco: Never Alcohol Use Standard Drinks/Week Comments Yes 0 (1 standard drink = 0.6 oz pur e alcohol) social mainly weekends Comments No Sex and Gender Information Value Date Recorded Sex Assigned at Female 11/22/2020 8:33 AM CDT Legal Sex Female 5:35 AM SKIN CARE THERAPIST Gender Identity Female 11/22/2020 8:33 AM CDT [...] encounter Miscellaneous Notes * Telephone Encounter - Marcos Delatorre - 11/01/2023 12:52 PM CDT At 11:29 a.m., I called patient but no answer. Left a voicemail. documented in this encounter Plan of Treatment Not on file documented as of this encounter Goals Goal Patient Goal Type Associated Problems Recent Progress Patient-Stated? Author Mobility/ROM General Improving(08/29 11:51 AM SKIN CARE THERAPIST) No Ayden Valentine RN Note: Expected end date: ongoing The goal is to maintain or improve your mobility at the optimum level for you. Interventions: documented as of this encounter Visit Diagnoses Not on filedocumented in this encounter Care Teams Shore Man Relationship Specialty Start Date End Date Ally Ruvalcaba, METAL DOOR ASSEMBLER-SURGICAL GARMENT ASSEMBLY SUPERVISOR PCP - General 11/22/20 documented as of this encounter
--- OUTSIDE RECORDS SUMMARY | 2025-07-20 09:53 | XMS_ITS | Encounter Summary ---
Author Organization [facility] Address [address] [place] [address] Care Team Providers Care Grocery Manager Name Role Phone Ally Ruvalcaba NP Primary Care Provider + Elisabeth Perez MD Unavailable Jean Carlos Hankins MD Unavailable [phone] Laureano Molina MD Unavailable [phone] Encounter Details Date Type Department Care Team (Late st Contact Info) Description 10/01/2024 [facility] [address] [place] [address] Ally Ruvalcaba NP [address] [address] Sick Social History Tobacco Use Types Packs/Day Years [...] Total Score: 0 06/29/20 21 3:18 PM PINEAPPLE PLANTATION MANAGER documented as of this encounter Care Teams Grocery Manager Relationship Specialty Start Date End Date Ally Ruvalcaba, COLLECTION CLERK [address] [address] PCP - General Nurse Practitioner Family 08/30/20 Elisabeth Perez MD [address] [address] CARDIOLOGY 08/30/20 Jean Carlos Hankins MD [address] [address] INTERNAL MEDICINE 08/30/20 Laureano Molina MD [address] [phone] CARDIOVASCULAR DISEASE 11/27/23 documented as of this encounter
--- OUTSIDE RECORDS SUMMARY | 2025-07-20 09:53 | XMS_ITS | Encounter Summary ---
Author Organization [facility] Address [address] [place] [address] Care Team Providers Care Stamping Die Maker Name Role Phone Ally Ruvalcaba NP Primary Care Provider + Elisabeth Perez MD Unavailable Jean Carlos Hankins MD Unavailable [phone] Laureano Molina MD Unavailable [phone] Encounter Details Date Type Department Care Team (Late st Contact Info) Description 06/17/2024 [facility] [address] [place] [address] Ally Ruvalcaba NP [address]01 [facility] [address] [place] [address] Sores on ankle Social History Tobacco Use Types Packs/Day Years [...] Rule Out 07/14/2024 07/14/2024 07/14/2024 9:28 AM WEB SERVICES MANAGER Assessment Noted Time PHQ-9 Depression Total Score: 0 06/29/20 3:18 PM WEB SERVICES MANAGER documented as of this encounter Care Teams Stamping Die Maker Relationship Specialty Start Date End Date Ally Ruvalcaba, SHRIMP BOAT CAPTAIN [address] [address] PCP - General Nurse Practitioner Family 08/30/20 Elisabeth Perez MD [address] [place] [address] CARDIOLOGY 08/30/20 Jean Carlos Hankins MD [address] [place], [place] [address] INTERNAL MEDICINE 08/30/20 Laureano Molina MD [address] [phone] CARDIOVASCULAR DISEASE 11/27/23 documented as of this encounter
--- OUTSIDE RECORDS SUMMARY | 2025-07-20 09:54 | XMS_ITS | Encounter Summary ---
Author Organization [facility] Address [address] [place] [address] Care Team Providers Care Teaching Aide Name Role Phone Ally Ruvalcaba Cornel FUNES Primary Care Provider + Elisabeth Perez MD Unavailable [phone] Jean Carlos Hankins MD Unavailable [phone] Laureano Molina MD Unavailable [phone] Encounter Details Date Type Department Care Team (Late st Contact Info) Description 10/30/2023 Comic [facility] Message [facility] [address] [place] [address] [facility] Schedule Appointment - Annual Physical Social History Tobacco Use Types Packs/Day Years Used Date Smoking Tobacco: Never Passive Smoke Exposure: Never Smokeless Tobacco: Never Alcohol Use Standard Drinks/Week Comments Yes 0 (1 standard drink = 0.6 oz pur e alcohol) social - occasional weekends PHQ-2 Answer Date Recorded Patient Health Questionnaire-2 Score 0 07/01/2023 Comments No Sex and Gender Information Value [...] Last Indicated Resolved Time COVID-19 Rule Out 11/05/2023 11/05/2023 11/05/2023 4:36 PM CDT COVID-19 Rule Out 07/14/2024 07/14/2024 07/14/2024 9:28 AM POTATO SPOTTER Assessment Noted Time PHQ-9 Depression Total Score: 0 06/29/20 3:18 PM POTATO SPOTTER documented as of this encounter Care Teams Teaching Aide Relationship Specialty Start Date End Date Ally Ruvalcaba, SHANTEL [address] [address] PCP - General Nurse Practitioner Family 08/30/20 Elisabeth Perez MD [address], [place] [address] CARDIOLOGY 08/30/20 Jean Carlos Hankins MD [address], [place] [address] INTERNAL MEDICINE 08/30/20 Laureano Molina MD [address] [address] CARDIOVASCULAR DISEASE 11/27/23 documented as of this encounter
--- OUTSIDE RECORDS SUMMARY | 2025-07-20 09:54 | XMS_ITS | Encounter Summary ---
Author Organization [facility] Address [address] [place] [address] Care Team Providers Care Genomics Scientist Name Role Phone Ally Ruvalcaba NP Primary Care Provider + Elisabeth Perez MD Unavailable [phone] Jean Carlos Hankins MD Unavailable [phone] Laureano Molina MD Unavailable Encounter Details Date Type Department Care Team (Late st Contact Info) Description 07/23/2023 [facility] [address] [place] [address] Ally Ruvalcaba NP [address] [address] Health question Social History Tobacco Use Types Packs/Day Years [...] Out 07/14/2024 07/14/2024 07/14/2024 9:28 AM CHIEF MECHANICAL OFFICER Assessment Noted Time PHQ-9 Depression Total Score: 0 06/29/20 3:18 PM CHIEF MECHANICAL OFFICER documented as of this encounter Care Teams Genomics Scientist Relationship Specialty Start Date End Date Ally Ruvalcaba NP [address] [address] PCP - General Nurse Practitioner Family 08/30/20 Elisabeth Perez MD [address] [place] [phone] CARDIOLOGY 08/30/20 Jean Carlos Hankins MD [address] [place] [phone] INTERNAL MEDICINE 08/30/20 Laureano Molina MD [address] [address] CARDIOVASCULAR DISEASE 11/27/23 documented as of this encounter
--- OUTSIDE RECORDS SUMMARY | 2025-07-20 09:54 | XMS_ITS | Encounter Summary ---
Author Organization [facility] Address [address] [place] [address] Care Team Providers Care Financial Administrator Name Role Phone Ally Ruvalcaba NP Primary Care Provider + Elisabeth Perez MD Unavailable [phone] Jean Carlos Hankins MD Unavailable [phone] Laureano Molina MD Unavailable [phone] Encounter Details Date Type Department Care Team (Late st Contact Info) Description 11/26/2023 [facility] [address] [place] [address] Ally Ruvalcaba NP 9401 [facility] [address] [place] [address] Leg swelling Social History Tobacco Use Types Packs/Day Years Used Date Smoking Tobacco: Never Passive Smoke Exposure: Never Smokeless Tobacco: Never Alcohol Use Standard Drinks/Week Comments Yes 0 (1 standard drink = 0.6 oz pur e alcohol) social - occasional weekends PHQ-2 Answer Date Recorded Patient Health Questionnaire-2 Score 0 11/27/2023 Comments No Sex and Gender Information Value [...] Rule Out 07/14/2024 07/14/2024 07/14/2024 9:28 AM VACUUM CLOSING MACHINE OPERATOR Assessment Noted Time PHQ-9 Depression Total Score: 0 06/29/20 3:18 PM VACUUM CLOSING MACHINE OPERATOR documented as of this encounter Care Teams Financial Administrator Relationship Specialty Start Date End Date Ally Ruvalcaba, CUSHION PADDER 9401 [facility] [address] [place] [address] PCP - General Nurse Practitioner Family 08/30/20 Elisabeth Perez MD [address] [address] CARDIOLOGY 08/30/20 Jean Carlos Hankins MD [address], [place] [address] INTERNAL MEDICINE 08/30/20 Laureano Molina MD [address] [address] CARDIOVASCULAR DISEASE 11/27/23 documented as of this encounter
--- OUTSIDE RECORDS SUMMARY | 2025-07-20 09:54 | XMS_ITS | Encounter Summary ---
Author Organization [facility] Address [address] [place] [address] Care Team Providers Care Window Clerk Name Role Phone Ally Ruvalcaba Cornel FUNES Primary Care Provider + Elisabeth Perez MD Unavailable [phone] Jean Carlos Hankins MD Unavailable [phone] Laureano Molina MD Unavailable [phone] Encounter Details Date Type Department Care Team (Late st Contact Info) Description 10/31/2023 [facility] [address] [place] [address] [facility] Physical Social History Tobacco Use Types Packs/Day [...] Rule Out 07/14/2024 07/14/2024 07/14/2024 9:28 AM MOTORCOACH DRIVER Assessment Noted Time PHQ-9 Depression Total Score: 0 06/29/20 3:18 PM MOTORCOACH DRIVER documented as of this encounter Care Teams Window Clerk Relationship Specialty Start Date End Date Ally Ruvalcaba NP [address] [address] PCP - General Nurse Practitioner Family 08/30/20 Elisabeth Perez MD [address], [place] [address] CARDIOLOGY 08/30/20 Jean Carlos Hankins MD [address], [place] [address] INTERNAL MEDICINE 08/30/20 Laureano Molina MD [address] [address] CARDIOVASCULAR DISEASE 11/27/23 documented as of this encounter
--- OUTSIDE RECORDS SUMMARY | 2025-07-20 09:54 | XMS_ITS | Encounter Summary ---
Author Organization [facility] Address [address] [place] [address] Care Team Providers Care Biofuels Engineering Manager Name Role Phone Ally Ruvalcaba Cornel FUNES Primary Care Provider + Elisabeth Perez MD Unavailable [phone] Jean Carlos Hankins MD Unavailable [phone] Laureano Molina MD Unavailable [phone] Encounter Details Date Type Department Care Team (Late st Contact Info) Description 07/02/2023 [facility] [address] [place] [address] [facility] results Social History Tobacco Use Types Packs/Day Years [...] Rule Out 07/14/2024 07/14/2024 07/14/2024 9:28 AM WORK STATION SUPPORT SPECIALIST Assessment Noted Time PHQ-9 Depression Total Score: 0 06/29/20 3:18 PM WORK STATION SUPPORT SPECIALIST documented as of this encounter Care Teams Biofuels Engineering Manager Relationship Specialty Start Date End Date Ally Ruvalcaba NP [address] [address] PCP - General Nurse Practitioner Family 08/30/20 Elisabeth Perez MD [address], [place] [address] CARDIOLOGY 08/30/20 Jean Carlos Hankins MD [address], [place] [address] INTERNAL MEDICINE 08/30/20 Laureano Molina MD [address] [address] CARDIOVASCULAR DISEASE 11/27/23 documented as of this encounter
--- OUTSIDE RECORDS SUMMARY | 2025-07-20 09:54 | XMS_ITS | Encounter Summary ---
Author Organization [facility] Address [address] [place] [address] Care Team Providers Care Die Casting Machine Operator Name Role Phone Ally Ruvalcaba Cornel FUNES Primary Care Provider + Elisabeth Perez MD Unavailable [phone] Jean Carlos Hankins MD Unavailable [phone] Laureano Molina MD Unavailable [phone] Encounter Details Date Type Department Care Team (Late st Contact Info) Description 07/03/2021 [facility] [address] [place] [address] [facility] Provider results Social History Tobacco Use Types Packs/Day Years Used Date Smoking Tobacco: Never Smokeless Tobacco: Never Alcohol Use Standard Drinks/Week Comments Yes 0 (1 standard drink = 0.6 oz pur e alcohol) social - occasional weekends PHQ-2 Answer Date Recorded PHQ-2 Score - If the patient scores above 3, please move on to questions 3-9 0 06/29/2021 Comments No Sex and Gender Information Value Date Recorded Sex Assigned at Not on file Legal Sex Female 8:35 PM CDT Gender Identity Not on file Sexual Orientation Not on file COVID-19 Exposure Response Date Recorded In the last month, have you been in contact with someone who was confirmed or suspected to have Coronavirus / COVID-19? No / Unsure 06/29/2021 2:31 PM DETECTIVE BUREAU CHIEF documented as of this encounter Plan of Treatment Not on file documented as of this encounter Visit Diagnoses Not on filedocumented in this encounter Additional Health Concerns Infection Onset Date Last Indicated Resolved Time COVID-19 Rule Out 07/17/2021 07/17/2021 07/18/2021 7:28 PM DETECTIVE BUREAU CHIEF COVID-19 Rule Out 09/17/2022 09/17/2022 09/17/2022 1:37 PM DETECTIVE BUREAU CHIEF COVID-19 Rule Out 10/01/2022 10/01/2022 10/01/2022 1:56 PM DETECTIVE BUREAU CHIEF COVID-19 Rule Out 11/05/2023 11/05/2023 11/05/2023 4:36 PM CDT COVID-19 Rule Out 07/14/2024 07/14/2024 07/14/2024 9:28 AM DETECTIVE BUREAU CHIEF Assessment Noted Time PHQ-9 Depression Total Score: 0 06/29/20 3:18 PM DETECTIVE BUREAU CHIEF documented as of this encounter Care Teams Die Casting Machine Operator Relationship Specialty Start Date End Date Ally Ruvalcaba SOFTWARE PUBLISHER [address] [place] [address] PCP - General Nurse Practitioner Family 08/30/20 Elisabeth Perez MD [address] [address] CARDIOLOGY 08/30/20 Jean Carlos Hankins MD [address], [place] [address] INTERNAL MEDICINE 08/30/20 Laureano Molina MD [address] [address] CARDIOVASCULAR DISEASE 11/27/23 documented as of this encounter
--- OUTSIDE RECORDS SUMMARY | 2025-07-20 09:54 | XMS_ITS | Clinical Summary ---
Author Organization [facility] Address [address] [place] [address] Care Team Providers Care Egg Gatherer Name Role Phone Ally Ruvalcaba MANAGER HEMATOLOGY Primary Care Provider DuaneMinnie Johnson MD Unavailable Love Zelaya MD Unavailable [phone] Regina Sharpe RN Unavailable Unava ilable Miguel A Howard RN Unavailable Unav ailable Allergies Active Allergy Reactions Criticality Noted Date Comments Iodinated Contrast Media Anaphylaxis High 04/14/2023 Reaction when 1 years old during cardiac cath. Iodine Other (See comments),Wheezing Medium 07/12/2019 wheezing Latex Unknown 04/14/2023 Meperidine Other (See comments),Wheezing Medium 02/27/2012 From previously cardiac cath experience wheezing Medications aspirin 81 mg chewable tabletIndicatio ns:prevention of thrombosis,Joe entital heart defect Take 1 tablet (81 mg total) by mouth every morning Active acetaminophen (TYLENOL) 325 mg tabletIndicatio ns:Pain Take 1 tablet (325 mg total) by mouth every 4 (four) hours as needed for pain Active MULTIVITAMIN ORALIndications :General health Take 1 tablet by mouth every morning Active guaiFENesin ER (MUCINEX) 600 mg 12 hr tabletIndicatio ns:Cold Symptoms Take 2 tablets (1,200 mg total) by mouth 2 (two) times a day 1 Active fluticasone propionate (FLONASE) 50 mcg/actuation nasal sprayIndication s:Allergic Rhinitis Administer 1 spray into each nostril as needed for rhinitis or allergies 1 Active loratadine (CLARITIN) 10 mg tabletIndicatio ns:Allergic Rhinitis Take 1 tablet (10 mg total) by mouth as needed for allergies 1 Active cholecalciferol (Vitamin D3) 400 unit capsuleIndicati ons:General health Take 1 tablet/capsule (400 Units total) by mouth every morning Active levalbuterol (XOPENEX HFA) 45 mcg/actuation inhalerIndicati ons:Acute Asthma Attack,Heart defect Inhale 2 puffs every 4 (four) hours as needed for wheezing or shortness of breath Has not used since 08/2024 Active furosemide (LASIX) 40 mg tablet Take 1 tablet (40 mg total) by mouth daily with breakfast AND 0.5 tablets (20 mg total) with evening meal. 135 tablet 3 4 Active Additional Information Patient not taking.Reported on 04/19/2025 carvediloL (COREG) 12.5 mg tablet Take 1 tablet (12.5 mg total) by mouth 2 (two) times a day with meals 60 tablet 11 4 Active Additional Information Patient taking differently:12.5 mg oral 2 times daily with meals (bkfst, dinner),Indications: Heart defect, Informant: Self, Reported on 04/19/2025 triamcinolone (KENALOG) 0.1 % creamIndication s:Skin Inflammation,sk in rash Apply 1 g topically every morning 5 Active sacubitriL-vals yesenia (ENTRESTO) 24-26 mg tabletIndicatio ns:chronic heart failure Take 1 tablet by mouth 2 (two) times a day 60 tablet 11 5 11/27/19 26 Active spironolactone (ALDACTONE) 25 mg tablet TAKE 1 TABLET (25 MG TOTAL) BY MOUTH DAILY. 90 tablet 3 5 Active empagliflozin (JARDIANCE) 10 mg tablet Take 1 tablet (10 mg total) by mouth daily 30 tablet 11 5 02/26/20 26 Active methocarbamoL (ROBAXIN) 500 mg tablet Take 1 tablet (500 mg total) by mouth every 8 (eight) hours as needed Active Active Problems Problem Noted Date Diagnosed Date Radial tunnel syndrome 11/13/2024 Hot flashes 08/11/2024 Overview (08/11/2024): - started 06/2024 in setting of close to 6 months of no menses - undergoing anovulation/oligomenorrhea workup, concern for POI - discussed options of symptomatic treatment including HRT and non hormonal options - deferring additional treatment pending AUB workup Abnormal uterine bleeding (AUB) 06/30/2024 Overview (08/11/2024): History: - likely anovulatory given 50-60 days between cycles, negative OPK kits for several months while taking the tests most days - has only used hormonal control for 1 or 2 cycles in her life. Many years ago tried control but preschool teacher told her not to take it with her other medical history - no history of hirsutism, acne, acanthosis nigricans - maternal aunt diagnosed with POI in her mid thirties after abnormal periods and infertility Workup: - had elevated prolactin earlier this year (results not visible in mychart) with negative brain MRI - TVUS 08/10/2024 noted small anteverted uterus, EMS 6.1mm, normal size and volume bilateral ovaries - 06/2024 serum workup: AMH < 0.05, DHEAS low 48; TSH, prolactin normal - provera challenge 06/2024 without withdrawal bleed Assessment: - prolonged anovulation/no menses and no withdrawal bleed with provera challenge, AMH < 0.05, hot flashes concerning for primary ovarian insufficiency - reviewed possible POI diagnosis with patient. Definitive testing with random labs today and in 1 month. Offered [facility] referral now vs continued workup, patient prefers to defer JAISON referral until further testing completed. Discussed that if initial FSH/LH c/w POI, would recommend follow up with [facility]ISON Plan: - random serum labs today, if FSH/LH c/w POI then repeat in 1 month - further testing/referrals pending serum studies Encounter for preconception consultation 024 Overview (06/30/2024): - see previous notes by Dr. Zelaya and Dr. Cordero for preconception counseling - addressed that patient still taking spironolactone and would not recommend this in . Patient's understand was that she would continue taking this and notify office once for further discussion. For ongoing discussion with team about recommendations - Varicella and rubella titers ordered Screening examination for STI 06/30/2024 Essential hypertension 10/12/2021 Chronic heart failure with preserved ejection fr action 10/12/2021 Palpitations 02/22/2010 Common truncus arteriosus 10/14/2009 Encounters Date Type Department Care Team Description 07/13/2025 Telephone [facility] Medicine Orthopaedic Surgery [address] [facility] 1st Floor [address] [place] [address] Baylee Camara RMA 07/12/2025 Orders Only [facility] [address] [facility] 2nd Floor [address] [place] [address] Guerrero Reilly MD Chronic left SI joint pain (Primary Dx) 07/08/2025 Orders Only [facility] [address] [place] [address] Guerrero Reilly MD Chronic bilateral low back pain, unspecified whether sciatica present; 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 2:07 PM MANAGER ONLINE - 07/07/2025 11:59 PM MANAGER ONLINE Hospital Encounter [facility] [address] [place] [address] Discharge Disposition: Discharge to home or self care 06/18/2025 Orders Only [facility] Medicine Orthopaedic Surgery [address] [facility] Medical Office Building [address] [place] [address] Guerrero Reilly MD Chronic bilateral low back pain, unspecified whether sciatica present (Primary Dx); 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 CARDIAC VALVE SURGERY 07/29/2018 - 07/28/2019 Right Chely valve CARDIAC VALVE REPLACEMENT Medical History Medical History Date Comments Truncus arteriosus Arrhythmia Chronic hypertension PONV (postoperative nausea and vomiting) per pt x 1, thinks was due to drinking water too quickly Heart disease Asthma Menstrual problem Family History Medical History Relation Name Comments Heart disease Maternal Grandfather Jesus Kim Hypertension Maternal Grandmother Lisa Kim Heart disease Mother Elisabeth Kim pacemaker Mother Elsiabeth Kim Anesthesia problems Neg Hx Relation Name Status Comments Maternal Grandfather Jesus Kim Alive Maternal Grandmother Lisa Kim Alive Mother Elisabeth Kim Social History Tobacco Use Types Packs/Day Years Used Date Smoking Tobacco: Never Smokeless Tobacco: Never Tobacco Cessation:Counseling Given: Not Answered Alcohol Use Standard Drinks/Week Comments Yes 0 (1 standard drink = 0.6 oz pur e alcohol) socially AUDIT-C Answer Date Recorded Q1: How often do you have a drink containing alc ohol? 2-4 times a month 01/22/2025 Q2: How many drinks containi ng alcohol do you have on a typical day when you are drinking? 1 or 2 01/22/2025 Q3: How often do you have si x or more drinks on one occasion? Never 01/22/2025 Hunger Vital Sign Answer Date Recorded Within the past 12 months, y ou worried that your food would run out before you got the money to buy more. Never true 08/10/19 25 Within the past 12 months, t he food you bought just didn't last and you didn't have money to get more. Never true 08/10/2024 Personal Safety Answer Date Recorded Have you ever been in or are you currently in a harmful physical or emotional relationship or is someone making you feel afraid or unsafe? Denies 01/22/2025 Comments No Sex and Gender Information Value Date Recorded Sex Assigned at Not on file Legal Sex Female 9:06 AM MANAGER ONLINE Gender Identity Not on file Sexual Orientation Not on file Obstetrics History Para Term AB IAB SAB Ectopic Multiple Livin g Live Births 0 0 0 0 0 0 0 0 0 0 0 Last Filed Vital Signs Vital Sign Reading Time Taken Comments Blood Pressure 107/69 02/25/2025 11:11 AM CDT Pulse 69 02/25/2025 11:11 AM CDT Temperature 36 C (96.8 F) 01/22/2025 9:50 AM CDT Respiratory Rate 15 01/22/2025 9:50 AM CDT Oxygen Saturation 97% 02/25/2025 11:11 AM CDT Inhaled Oxygen Concentration - - Weight 100.7 kg (222 lb) 04/19/2025 2:02 PM CDT Height 172.7 cm (5' 8) 04/19/2025 2:02 PM CDT Body Mass Index 33.75 04/19/2025 2:02 PM CDT Plan of Treatment Health Maintenance Due Date Last Done Comments Cervical Cancer Screening 1993 Depression Screening 1993 Varicella Vaccines (2 of 2 - 13+ 2-dose series) 12/27/2007 11/29/2007 Regular Well Visit/Exam 18-64 10/04/2011 Pneumococcal vaccine <65 (1 of 2 - PCV) 2012 Covid-19 Vaccine (2 - 2024-2 6 season) 2025 03/02/2021 DTaP/Tdap/Td Vaccine (6 - Td or Tdap) 09/27/2025 09/28/2015, 11/29/2007, 09/24/1994, Additional history exists Hepatitis B Screening Completed 09/24/1994 , 09/24/1994, 01/09/1994, Additional history exists HPV Vaccines Completed 02/11/2009, 05/10/2008 Hepatitis C Screening Completed 06/29/2024 Influenza Vaccine Completed 06/04/2025, , 05/08/2023, Additional history exists Medical Devices Implanted Type Area Application Internship Device Identifier Shelf Expiration Date Model / Serial / Lot Metal Asher Right: Elbow Chely Valve Right: Heart Procedures Procedure Name Priority Date/Time Associated Diagnosis Comments CT LUMBAR SPINE WO CONTRAST Schedule Routine, Read Routine (OP Routine) 07/08/2025 10:33 AM MANAGER ONLINE Chronic bilateral low back pain, unspecified whether sciatica present Bertolotti's syndrome NEURO CT OUTSIDE REFERENCE Routine 07/07/2025 2:07 PM MANAGER ONLINE MRI LUMBAR SPINE WO CONTRAST Schedule Routine, Read Routine (OP Routine) 06/18/2025 8:41 AM MANAGER ONLINE Lumbar radiculopathy NEURO MR OUTSIDE REFERENCE Routine 06/17/2025 1:41 PM MANAGER ONLINE HEPATITIS C ANTIBODY Routine 06/29/2024 3:34 PM MANAGER ONLINE Screening examination for STI from Last 3 Months or Most Recently Relevant to Health Maintenance Results * CT Lumbar Spine WO Contrast (07/08/2025 10:33 AM MANAGER ONLINE) Anatomical Region Laterality Modality Spine N/A Computed Tomogra phy us Guerrero Reilly MD [facility] [place] [place] PROCEDURES Fi nal Result * Neuro CT Outside Reference (07/07/2025 2:07 PM MANAGER ONLINE) Impressions [facility] - 07/07/2025 2:07 PM MANAGER ONLINE These images are for Reference purposes only and have not been reviewed by [facility]. There will be no report generated by a [facility]iologist. Narrative [facility] - 07/07/2025 2:07 PM MANAGER ONLINE EXAMINATION: Images For Reference Purposes Only us Guerrero Reilly MD IM CT PROCEDURES Fi nal Result [facility] * MRI Lumbar Spine WO Contrast (06/18/2025 8:41 AM MANAGER ONLINE) Anatomical Region Laterality Modality Spine N/A Magnetic Resonan ce us Guerrero Reilly MD IM MRI PROCEDURES F inal Result * Neuro MR Outside Reference (06/17/2025 1:41 PM MANAGER ONLINE) Impressions [facility] - 06/17/2025 1:41 PM MANAGER ONLINE These images are for Reference purposes only and have not been reviewed by [facility]. There will be no report generated by a [facility]iologist. Narrative [facility] - 06/17/2025 1:41 PM MANAGER ONLINE EXAMINATION: Images For Reference Purposes Only us Guerrero Reilly MD IMG MRI PROCEDURES F inal Result [facility] * Hepatitis C antibody Blood (06/29/2024 3:34 PM MANAGER ONLINE) Hep C Ab Nonreactive Nonreactive Comment:Antibodies to HCV no t detected. Does NOT exclude the possibility of recent exposure to HCV. Current interpretive data was last revised on 22 Blood 06/29/2024 3:34 PM MANAGER ONLINE 06/29/2024 5:31 PM MANAGER ONLINE us Minnie Sandhu MD LAB MICROBIOLOG Y - GENERAL ORDERABLES Final Result [facility] [place] [address] from Last 3 Months or Most Recently Relevant to Health Maintenance Insurance [facility] Address: [address] [place] [address] [employer] [facility]/PPO Address: [address] [address] [place] [address] [address] [phone] Care Teams Egg Gatherer Relationship Specialty Start Date End Date Ally Ruvalcaba NP [address] [facility] [address] [place] [address] PCP - General Family Medicine 04/10/22 Minnie Sandhu MD [address] [facility] [address] [place] [address] Resident Obstetrics and Gynecology 09/03/24 Love Zelaya MD [address] [place] [id number] Consulting Physician Cardiology 02/02/25 Regina Sharpe, mental health technician Failure Coordinator Cardiology 02/02/25 Miguel A Howard, mental health technician Failure Coordinator Cardiology 02/02/25
--- OUTSIDE RECORDS SUMMARY | 2025-07-20 09:54 | XMS_ITS | Encounter Summary ---
Author Organization [facility] Address [address] [place] [address] Care Team Providers Care Women'S Garment Fitter Name Role Phone Ally Ruvalcaba Cornel FUNES Primary Care Provider + Elisabeth Perez MD Unavailable [phone] Jean Carlos Hankins MD Unavailable [phone] Laureano Molina MD Unavailable [phone] Encounter Details Date Type Department Care Team (Late st Contact Info) Description 01/23/2023 MyChart Message Enc [facility] - [facility] [address] [place], [place] [id number] Kenneth, [facility] Provider Air Quality Message Social History Tobacco Use Types Packs/Day Years Used Date Smoking Tobacco: Never Passive Smoke Exposure: Never Smokeless Tobacco: Never Alcohol Use Standard Drinks/Week Comments Yes 0 (1 standard drink = 0.6 oz pur e alcohol) social - occasional weekends PHQ-2 Answer Date Recorded Patient Health Questionnaire-2 Score 0 10/01/2022 Comments No Sex and Gender Information Value [...] Rule Out 07/14/2024 07/14/2024 07/14/2024 9:28 AM LIEUTENANT/DEPUTY Assessment Noted Time PHQ-9 Depression Total Score: 0 06/29/20 3:18 PM LIEUTENANT/DEPUTY documented as of this encounter Care Teams Women'S Garment Fitter Relationship Specialty Start Date End Date Ally Ruvalcaba, SHANTEL [address] [facility] [address] [place] [address] PCP - General Nurse Practitioner Family 08/30/20 Elisabeth Perez MD [address], [place] [address] CARDIOLOGY 08/30/20 Jean Carlos Hankins MD [address], [place] [address] INTERNAL MEDICINE 08/30/20 Laureano Molina MD [address] [address] CARDIOVASCULAR DISEASE 11/27/23 documented as of this encounter
--- OUTSIDE RECORDS SUMMARY | 2025-07-20 09:54 | XMS_ITS | Encounter Summary ---
Author Organization [facility] Address [address] [place] [address] Care Team Providers Care Learning And Development Assistant Name Role Phone Md Generic Bud SANCHEZ Primary Care Provider Unavailable None, Provider MD Primary Care Provider Unavaila Ally Carpio NP Primary Care Provider + Elisabeth Perez MD Unavailable [phone] Jean Carlos Hankins MD Unavailable [phone] Laureano Molina MD Unavailable [phone] Encounter Details Date Type Department Care Team (Late st Contact Info) Description 06/01/2017 Abstract [place] [address] , Generic ConversionMD Social History Tobacco Use Types Packs/Day Years Used Date Smoking Tobacco: Never Assessed Comments Unknown Sex and Gender Information Value Date Recorded [...] Last Indicated Resolved Time COVID-19 Rule Out 02/15/2021 02/15/2021 02/15/2021 10:28 AM CDT COVID-19 Rule Out 02/15/2021 02/15/2021 02/16/2021 5:50 PM CDT COVID-19 Rule Out 05/03/2021 05/03/2021 05/03/2021 7:55 PM CDT COVID-19 Rule Out 06/28/2021 06/28/2021 06/28/2021 8:29 AM ASSEMBLY MACHINE FEEDER COVID-19 Rule Out 06/30/2021 06/30/2021 06/30/2021 8:46 PM ASSEMBLY MACHINE FEEDER COVID-19 Rule Out 07/17/2021 07/17/2021 07/18/2021 7:28 PM ASSEMBLY MACHINE FEEDER COVID-19 Rule Out 09/17/2022 09/17/2022 09/17/2022 1:37 PM ASSEMBLY MACHINE FEEDER COVID-19 Rule Out 10/01/2022 10/01/2022 10/01/2022 1:56 PM ASSEMBLY MACHINE FEEDER COVID-19 Rule Out 11/05/2023 11/05/2023 11/05/2023 4:36 PM CDT COVID-19 Rule Out 07/14/2024 07/14/2024 07/14/2024 9:28 AM ASSEMBLY MACHINE FEEDER documented as of this encounter Care Teams Learning And Development Assistant Relationship Specialty Start Date End Date Yeisno Sanchez MD PCP - General 02/08/15 10/09/17 None, MD Sushil PCP - General 07/12/19 08/29/20 Ally Ruvalcaba JEWEL STAKER [address] [place] [address] PCP - General Nurse Practitioner Family 08/30/20 Elisabeth Perez MD [address], [place] [address] CARDIOLOGY 08/30/20 Jean Carlos Hankins MD [address] [place] [address] INTERNAL MEDICINE 08/30/20 Laureano Molina MD [address] [address] CARDIOVASCULAR DISEASE 11/27/23 documented as of this encounter
--- OUTSIDE RECORDS SUMMARY | 2025-07-20 09:54 | XMS_ITS | Encounter Summary ---
Author Organization [facility] Address [address] [place] [address] Care Team Providers Care Motion Study Engineer Name Role Phone Ally Ruvalcaba NP Primary Care Provider + Elisabeth Perez MD Unavailable [phone] Jean Carlos Hankins MD Unavailable [phone] Laureano Molina MD Unavailable Encounter Details Date Type Department Care Team (Late st Contact Info) Description 07/18/2021 [employer] [facility] [address] [place] [address] Ally Ruvalcaba NP [address] [facility] [address] [place] [address] COVID Test yesterday Social History Tobacco Use Types Packs/Day Years [...] have Coronavirus / COVID-19? No / Unsure 07/17/2021 8:49 AM BALLOON DIPPER documented as of this encounter Plan of Treatment Not on file documented as of this encounter Visit Diagnoses Not on filedocumented in this encounter Additional Health Concerns Infection Onset Date Last Indicated Resolved Time COVID-19 Rule Out 07/17/2021 07/17/2021 07/18/2021 7:28 PM BALLOON DIPPER COVID-19 Rule Out 09/17/2022 09/17/2022 09/17/2022 1:37 PM BALLOON DIPPER COVID-19 Rule Out 10/01/2022 10/01/2022 10/01/2022 1:56 PM BALLOON DIPPER COVID-19 Rule Out 11/05/2023 11/05/2023 11/05/2023 4:36 PM CDT COVID-19 Rule Out 07/14/2024 07/14/2024 07/14/2024 9:28 AM BALLOON DIPPER Assessment Noted Time PHQ-9 Depression Total Score: 0 06/29/20 3:18 PM BALLOON DIPPER documented as of this encounter Care Teams Motion Study Engineer Relationship Specialty Start Date End Date Ally Ruvalcaba NP [address] [address] PCP - General Nurse Practitioner Family 08/30/20 Elisabeth Perez MD [address] [place] [address] CARDIOLOGY 08/30/20 Jean Carlos Hankins MD [address] [place] [address] INTERNAL MEDICINE 08/30/20 Laureano Molina MD [address] [facility] [address] [place] [address] CARDIOVASCULAR DISEASE 11/27/23 documented as of this encounter
--- OUTSIDE RECORDS SUMMARY | 2025-07-20 09:54 | XMS_ITS | Encounter Summary ---
Author Organization [facility] Address [address] [place] [address] Care Team Providers Care Metal Numerical Control Programmer Name Role Phone Ally Ruvalcaba Cornel FUNES Primary Care Provider + Elisabeth Perez MD Unavailable [phone] Jean Carlos Hankins MD Unavailable [phone] Laureano Molina MD Unavailable [phone] Encounter Details Date Type Department Care Team (Late st Contact Info) Description 10/02/2022 [employer] Message [facility] [address] [place] [address] Teagan Puri, HOSPICE CARE CONSULTANT- Letter Social History Tobacco Use Types Packs/Day Years [...] Exposure Response Date Recorded In the last 10 days, have yo u been in contact with someone who was confirmed or suspected to have Coronavirus/COVID-19? No / Unsure 10/01/2022 8:01 AM CHILD CARE WORKER documented as of this encounter Plan of Treatment Not on file documented as of this encounter Visit Diagnoses Not on filedocumented in this encounter Additional Health Concerns Infection Onset Date Last Indicated Resolved Time COVID-19 Rule Out 11/05/2023 11/05/2023 11/05/2023 4:36 PM CDT COVID-19 Rule Out 07/14/2024 07/14/2024 07/14/2024 9:28 AM CHILD CARE WORKER Assessment Noted Time PHQ-9 Depression Total Score: 0 06/29/20 3:18 PM CHILD CARE WORKER documented as of this encounter Care Teams Metal Numerical Control Programmer Relationship Specialty Start Date End Date Ally Ruvalcaba NP [address] [address] PCP - General Nurse Practitioner Family 08/30/20 Elisabeth Perez MD [address] [place] [phone] CARDIOLOGY 08/30/20 Jean Carlos Hankins MD [address] [place] [address] INTERNAL MEDICINE 08/30/20 Laureano Molina MD [address] [address] CARDIOVASCULAR DISEASE 11/27/23 documented as of this encounter
--- OUTSIDE RECORDS SUMMARY | 2025-07-20 09:54 | XMS_ITS | Encounter Summary ---
Author Organization [facility] Address [address] [place] [address] Care Team Providers Care Fashion Marketer Name Role Phone Ally Ruvalcaba Cornel FUNES Primary Care Provider + Elisabeth Perez MD Unavailable Jean Carlos Hankins MD Unavailable [phone] Laureano Molina MD Unavailable [phone] Encounter Details Date Type Department Care Team (Late st Contact Info) Description 07/01/2023 [employer] [facility] [address] [place] [address] Ivan Peters MD [address] [address] X-Ray results Social History Tobacco Use Types Packs/Day [...] Rule Out 07/14/2024 07/14/2024 07/14/2024 9:28 AM SINGLE NEEDLE TUFTING MACHINE OPERATOR Assessment Noted Time PHQ-9 Depression Total Score: 0 06/29/20 3:18 PM SINGLE NEEDLE TUFTING MACHINE OPERATOR documented as of this encounter Care Teams Fashion Marketer Relationship Specialty Start Date End Date Ally Ruvalcaba NP [address] [address] PCP - General Nurse Practitioner Family 08/30/20 Elisabeth Perez MD [address] [address] CARDIOLOGY 08/30/20 Jean Carlos Hankins MD [address] [phone] INTERNAL MEDICINE 08/30/20 Laureano Molina MD [address] [address] CARDIOVASCULAR DISEASE 11/27/23 documented as of this encounter
--- OUTSIDE RECORDS SUMMARY | 2025-07-20 09:54 | XMS_ITS | Encounter Summary ---
Author Organization [facility] Address [address] [place] [address] Care Team Providers Care Produce Buyer Name Role Phone Ally Ruvalcaba Cornel FUNES Primary Care Provider + Elisabeth Perez MD Unavailable [phone] Jean Carlos Hankins MD Unavailable Laureano Molina MD Unavailable [phone] Encounter Details Date Type Department Care Team (Late st Contact Info) Description 07/30/2023 [employer] Message [facility] [address] [place] [address] [facility] Name Change Social History Tobacco Use Types Packs/Day Years [...] Rule Out 07/14/2024 07/14/2024 07/14/2024 9:28 AM LEAD MANUFACTURING TECHNICIAN Assessment Noted Time PHQ-9 Depression Total Score: 0 06/29/20 3:18 PM LEAD MANUFACTURING TECHNICIAN documented as of this encounter Care Teams Produce Buyer Relationship Specialty Start Date End Date Ally Ruvalcaba, SHANTEL [address] [address] PCP - General Nurse Practitioner Family 08/30/20 Elisabeth Perez MD [address] [place] [address] CARDIOLOGY 08/30/20 Jean Carlos Hankins MD [address] [address] INTERNAL MEDICINE 08/30/20 Laureano Molina MD [address] [id number] CARDIOVASCULAR DISEASE 11/27/23 documented as of this encounter
--- OUTSIDE RECORDS SUMMARY | 2025-07-20 09:54 | XMS_ITS | Encounter Summary ---
Author Organization [facility] Address [address] [place] [address] Care Team Providers Care Manager Customer Service Name Role Phone Ally Ruvalcaba Cornel FUNES Primary Care Provider + Elisabeth Perez MD Unavailable [phone] Jean Carlos Hankins MD Unavailable [phone] Laureano Molina MD Unavailable Encounter Details Date Type Department Care Team (Late st Contact Info) Description 01/22/2024 [employer] Message [facility] Out[facility] [address] [address] Travis Worley MD [address] [address] Appointment regarding Social History Tobacco Use Types Packs/Day Years [...] Rule Out 07/14/2024 07/14/2024 07/14/2024 9:28 AM CREDENTIALING ANALYST Assessment Noted Time PHQ-9 Depression Total Score: 0 06/29/20 3:18 PM CREDENTIALING ANALYST documented as of this encounter Care Teams Manager Customer Service Relationship Specialty Start Date End Date Ally Ruvalcaba NP [address] [place] [address] PCP - General Nurse Practitioner Family 08/30/20 Elisabeth Perez MD [address], [place] [address] CARDIOLOGY 08/30/20 Jean Carlos Hankins MD [address], [place] [address] INTERNAL MEDICINE 08/30/20 Laureano Molina MD [address] [address] CARDIOVASCULAR DISEASE 11/27/23 documented as of this encounter
--- OUTSIDE RECORDS SUMMARY | 2025-07-20 09:54 | XMS_ITS | Encounter Summary ---
Author Organization [facility] Address [address] [place] [address] Care Team Providers Care Machine Plaster Mixer Name Role Phone Ally Ruvalcaba SHANTEL Primary Care Provider + Elisabeth Perez MD Unavailable Jean Carlos Hankins MD Unavailable [phone] Laureano Molina MD Unavailable [phone] Encounter Details Date Type Department Care Team (Late st Contact Info) Description 03/10/2024 [employer] Message [facility] [address] [place], [place] [phone] Travis Worley MD [facility]. [facility] [address] [place], [place] [phone] Ultrasound test results Social History Tobacco Use Types Packs/Day [...] Rule Out 07/14/2024 07/14/2024 07/14/2024 9:28 AM RECORD LABEL INTERNSHIP Assessment Noted Time PHQ-9 Depression Total Score: 0 06/29/20 3:18 PM RECORD LABEL INTERNSHIP documented as of this encounter Care Teams Machine Plaster Mixer Relationship Specialty Start Date End Date Ally Ruvalcaba, FILM MASKER [address] [address] PCP - General Nurse Practitioner Family 08/30/20 Elisabeth Perez MD [address] [place] [phone] CARDIOLOGY 08/30/20 Jean Carlos Hankins MD [address] [place] [address] INTERNAL MEDICINE 08/30/20 Laureano Molina MD [address] [address] CARDIOVASCULAR DISEASE 11/27/23 documented as of this encounter
--- NOTE | 2025-07-20 09:57 | ED.URI ---
HPI - URI/Sore Throat General Chief Complaint: Upper Respiratory Infection Stated Complaint: Cough Source: patient Mode of arrival: ambulatory Limitations: no limitations History of Present Illness HPI Narrative: This is a 29 y/o female that presents to the urgent care for c/o cough, sore throat, sinus pressure and fever. 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 patient reports the sinus pressure started saturday evening ans has since worsened every day. patient denies any Nausea vomiting or diarrhea she denies any dizziness. She denies any chest pain or shortness for breath. She does endorse fever and pressure to sinus cavity. MD elicited complaint: fever, cough, sore throat, nasal congestion and sinus pain Onset (ago): day(s) (3) Consistency: constant Severity: moderate Related Data Home Medications ?Medication ?Instructions ?Recorded ?Confirmed ?Last Taken ?Type aspirin 81 mg tablet 81 mg PO DAILY 10/18/21 10/24/23 Unknown History diltiazem HCl 360 mg 360 mg PO DAILY 10/18/21 10/24/23 Unknown History capsule,extended release 24 hr multivit with minerals-iron 18 1 tablet PO DAILY 10/18/21 10/24/23 Unknown History mg-folic ac 400 mcg-vit K 25 mcg tablet (Adults Multivitamin) spironolactone 25 mg tablet 25 mg PO DAILY 10/18/21 10/24/23 Unknown History budesonide-formoterol HFA 160 2 inh inhalation DAILY 01/08/22 10/24/23 Unknown History mcg-4.5 mcg/actuation aerosol inhaler (Symbicort) furosemide 20 mg tablet 1 tablet PO DAILY 01/08/22 10/24/23 Unknown History hydralazine 50 mg tablet 50 mg PO TID 11/30/22 10/24/23 Unknown History isosorbide dinitrate 20 mg tablet 20 mg PO TID 11/30/22 10/24/23 Unknown History metoprolol succinate 50 mg 50 mg PO DAILY 11/30/22 10/24/23 Unknown History tablet,extended release 24 hr Allergies Allergy/AdvReac Type Severity Reaction Status Date / Time latex Allergy Mild Rash Verified 07/20/25 09:42 meperidine (From Demerol) Allergy Mild Rash Verified 07/20/25 09:42 iodine AdvReac Intermediate Wheezing Verified 07/20/25 09:42 iohexol (From contrast - CT, AdvReac Intermediate Wheezing Verified 07/20/25 09:42 X-RAY) Review of Systems Review of Systems: All systems reviewed & are unremarkable except as noted in HPI and below PMFSH Past Medical History Medical History Congenital heart valve abnormality Asthma Surgical History Surgical History Heart valve replaced 2019 through cardiac catheterization procedure History of open heart surgery X3 Hx of cholecystectomy Family History Family History Mother Family history non-contributory Social History Social History Smoking status: Never smoker Alcohol intake: current Alcohol use details: rare alcohol use Substance use: never Living arrangements: with family Gender identity (if verbalized by the patient): Female Spiritual care concerns: No Exam Const: General: ill appearing Nutritional Appearance: well nourished Orientation/consciousness: patient oriented x3 Limitations: no limitations HENMT: Head: normal to inspection Ears: TM abnormal bulging bilateral Face/Nose/Sinus: Nasal discharge present mucoid Face and sinus: sinus tenderness maxillary Mouth: Yes Normal oral and palatal mucosa present Teeth and gingiva: dentition normal Throat: posterior oropharynx normal Eyes: Conjunctivae: conjunctivae normal Pupils: Equal, round and reactive pupils present EOM: EOMs intact bilaterally Direct Ophthalmoscopy: no photophobia Neck: Neck: normal visual inspection and no lymphadenopathy Chest: Chest palpation & inspection: normal inspection of the chest Resp: Effort & Inspection: normal respiratory effort Auscultation: clear to auscultation bilaterally Cardio: Rate: regular rate Rhythm: regular rhythm GI: GI Palp: Yes Soft to palpation Auscultation: normal bowel sounds Skin: General skin exam: normal color Rashes: no rashes Wounds: no wounds Neuro: General: patient oriented x3 Cranial nerves: Yes Nystagmus not present Speech: normal speech Gait exam (Neuro): Normal gait present Extrem: General: normal to inspection and no clubbing, cyanosis or edema Psych: Mental Status: mental status grossly normal Affect: normal affect Attitude: cooperative Course Course Emergency Course: This is a 29 y/o female that presents to the urgent care for c/o cough, sore throat, sinus pressure and fever. 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 patient reports the sinus pressure started saturday evening ans has since worsened every day. patient denies any Nausea vomiting or diarrhea she denies any dizziness. She denies any chest pain or shortness for breath. She does endorse fever and pressure to sinus cavity. vitals stable orders for covid, influenza a&b, strep a tests ordered. strep a negative covid negative influenza A&B. Increase fluids, rest, symptomatic management: - cough and cold medication per package instructions, - cough drops for sore throat and cough, - vicks vapor rub, - tylenol and motrin for fever and body aches, soft bland foods, take antibiotic as prescribed follow-up with primary care chronic 2-3 days for further evaluation and exam -you are contantagious so avoid any crowds, immunocompromised people, infants or elderly. Answered all questions to their satisfaction they are agreeable to plan patient denies any further needs or concerns to be addressed prior to discharge. Level of Care: Express Care Visit Vital Signs Vital signs: Vital Signs Temperature 98.0 F 07/20/25 09:42 Pulse Rate 76 07/20/25 09:42 Respiratory Rate 18 07/20/25 09:42 Blood Pressure 169/76 H 07/20/25 09:42 Pulse Oximetry 99 07/20/25 09:42 Oxygen Delivery Room Air 07/20/25 09:42 Temperature 98.0 F 07/20/25 09:42 Pulse Rate 76 07/20/25 09:42 Respiratory Rate 18 07/20/25 09:42 Blood Pressure 169/76 H 07/20/25 09:42 Pulse Oximetry 99 07/20/25 09:42 Oxygen Delivery Room Air 07/20/25 09:42 [facility] MDM Narrative Medical decision making narrative: This is a 29 y/o female that presents to the urgent care for c/o cough, sore throat, sinus pressure and fever. 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 patient reports the sinus pressure started saturday evening ans has since worsened every day. patient denies any Nausea vomiting or diarrhea she denies any dizziness. She denies any chest pain or shortness for breath. She does endorse fever and pressure to sinus cavity. vitals stable orders for covid, influenza a&b, strep a tests ordered. strep a negative covid negative influenza A&B. Increase fluids, rest, symptomatic management: - cough and cold medication per package instructions, - cough drops for sore throat and cough, - vicks vapor rub, - tylenol and motrin for fever and body aches, soft bland foods, take antibiotic as prescribed follow-up with primary care chronic 2-3 days for further evaluation and exam -you are contantagious so avoid any crowds, immunocompromised people, infants or elderly. Differential Diagnosis Differential Diagnosis: covid, influenza A&B, strep a, sinusitits Medical Records I have reviewed the following patient records and this information was taken into consideration when formulating the assessment and plan.: previous labs, previous ER visits and previous clinic visits Lab Data MDM Lab Attestation statement: I personally reviewed the patient's lab results. Lab results narrative: strep a negative covid negative influenza A&B. Labs: Lab Results 07/20/25 Range/Units 10:11 POC Influenza A Ag Negative (Negative) POC Influenza B Ag Negative (Negative) POC SARS CoV-2 Ag Negative (Negative) POC Grp A Strep Screen Negative (Negative) Discharge Plan Discharge Clinical Impression: Sinusitis Qualifiers: Sinusitis location: unspecified location Chronicity: acute Recurrence: non-recurrent Qualified Code(s): J01.90 - Acute sinusitis, unspecified Patient Disposition: Home Condition: Stable Instructions: Antibiotic Form, Sinusitis (ED) Additional Instructions: Increase fluids, rest, symptomatic management: - cough and cold medication per package instructions, - cough drops for sore throat and cough, - vicks vapor rub, - tylenol and motrin for fever and body aches, soft bland foods, take antibiotic as prescribed follow-up with primary care chronic 2-3 days for further evaluation and exam -you are contantagious so avoid any crowds, immunocompromised people, infants or elderly. Patient Language: Taiwanese Prescriptions: New amoxicillin-pot clavulanate 875-125 mg tablet 1 tablet PO Q12H Qty: 14 0RF prednisone 10 mg tablet 10 mg PO BID Qty: 10 0RF No Action diltiazem HCl 360 mg capsule,extended release 24hr 360 mg PO DAILY spironolactone 25 mg tablet 25 mg PO DAILY aspirin 81 mg Tablet 81 mg PO DAILY Adults Multivitamin 18 mg iron-400 mcg-25 mcg Tablet 1 tablet PO DAILY furosemide 20 mg tablet 1 tablet PO DAILY budesonide-formoterol [Symbicort] 160-4.5 mcg/actuation HFA aerosol inhaler 2 inh INHALATION DAILY prednisone 20 mg tablet 40 mg PO DAILY 5 Days Qty: 10 0RF benzonatate 100 mg capsule 100 mg PO BID PRN (Reason: cough) Qty: 14 0RF amoxicillin-pot clavulanate 875-125 mg tablet 1 tablet PO Q12H 10 Days Qty: 20 0RF metoprolol succinate 50 mg tablet extended release 24 hr 50 mg PO DAILY isosorbide dinitrate 20 mg tablet 20 mg PO TID hydralazine 50 mg tablet 50 mg PO TID ciprofloxacin-dexamethasone 0.3-0.1 % drops,suspension 4 drp LEFT EAR Q12H 7 Days Qty: 7.5 0RF Follow-up/Referrals: Jordon,Ally Longoria [Other] Time of Disposition: 10:18
[2025-07-20 10:14] LABS: EDCOVIDSCREEN Negative (Negative); EDINFLUASCREEN Negative (Negative); EDINFLUBSCREEN Negative (Negative); EDSTREPNEGPOS1 Negative (Negative)
== END 2025-07-20 10:20 | disposition home or self-care (01) ==
PROVIDERS: Emergency Provider Nurse Practitioner Family
DX: J01.90 Acute sinusitis, unspecified (principal); Z20.822 Contact with and (suspected) exposure to COVID-19; J45.909 Unspecified asthma, uncomplicated; Z95.2 Presence of prosthetic heart valve; Z79.82 Long term (current) use of aspirin
CPT/HCPCS: 87426; 87804; 87880; 99213; G0463